=== PATIENT | male | born 1935 | race Caucasian/White ===

== ENCOUNTER 2017-02-11 14:26 | Inpatient (IN) | payer MEDICARE ==
--- NOTE | ~2017-02-11 | CT71 ---
[facility] A Service [facility] RADIOLOGY TEXT RESULTS PATIENT: LONA STOVALL LOCATION: [facility]10-24 : 36 UNIT #: [id number] AGE: [address]: Evelia Pena MD SEX: M ORDER DR: [id number] [facility] [address] [place], [place] [address] [id number] I MR#: [id number] Acc #: [id number] NAME: LONA STOVALL : 1935 SEX: M STUDY DATE/TIME: 02/11/2017 14:52 UNIT: [facility] ROOM: [facility] STUDY DESCRIPTION: CT Head Wo Contrast Attending Physician: Evelia Pena M.D. Ordering Physician: Avinash Whitehead M.D. MEDICAL IMAGING REPORT This report is preliminary unless electronic signature is present EXAM Head CT without contrast. HISTORY Patient fell yesterday morning. Head injury. TECHNIQUE Axial images were obtained without contrast. This CT exam was performed with one or more of the following radiation dose reduction techniques: automatic exposure control, adjustment of mA and/or kV according to patient size, and iterative reconstruction. FINDINGS Generalized atrophy is noted. Encephalomalacia is seen in the left temporal lobe and posterior parietal lobe from an old infarct. There is no evidence of mass lesion, hemorrhage, or edema. Extraaxial structures are unremarkable. IMPRESSION Atrophy. 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 No acute findings. Dictated by... Donny Sanchez M.D. THIS IS AN ELECTRONICALLY VERIFIED REPORT Donny Sanchez M.D. at 02/15/2017 7:14 AM EZEKIEL/domonique TD: 02/11/2017 16:33 JOB #: [id number] [facility] A Service [facility] RADIOLOGY TEXT RESULTS PATIENT: LONA STOVALL LOCATION: [facility]10-24 : 36 UNIT #: [id number] AGE: [address]: Evelia Pena MD SEX: M ORDER DR: MEDICAL IMAGING REPORT Page 1 of 1 COPY
--- NOTE | ~2017-02-11 | CO ---
Unit #: [id number] #: [id number] Patient: LONA STOVALL [id number] [address] [place], [place] [address] [id number] I MR#: [id number] NAME: LONA STOVALL ROOM: 471 Age: 81 Sex: M Admission Date: 02/11/2017 : 1935 Attending Physician: Evelia Pena M.D. Primary Care Physician: Primary Care Physician No CONSULTATION REPORT REASON FOR CONSULTATION Lung mass concerning for malignancy. HISTORY OF PRESENT ILLNESS Mr. Stovall is a very pleasant 81-year-old gentleman, who has been admitted to the hospital after suffering a fall. The patient also was found to be anemic. He is known to have chronic kidney disease. On the chest x-ray, there was a left upper lobe opacity, because of which, he underwent CT scan of the chest without contrast. CT scan shows a left upper lobe mass, which is 6 x 5 x 6.7 cm mass. There is a possibility of dense masslike infiltrate, but that is felt to be less likely. There is in addition 1 cm upper mediastinal lymph node as well. The patient was also found to have an aortic aneurysm for which he has previous history. The patient is also found to be anemic with evidence of chronic kidney disease. PAST MEDICAL HISTORY 1. History of myocardial infarction in 2002 and 2003, anterior wall NH. 2. Abdominal aortic aneurysm repair. 3. History of paroxysmal atrial fibrillation. 4. Renal failure. 5. Hypertension and hyperlipidemia. PAST SURGICAL HISTORY History of stent placement, cataract surgery, abdominal aortic aneurysm repair. HOME MEDICATIONS Lopressor, Amaryl, Plavix, Lipitor, Tylenol, Lasix, isosorbide, aspirin. ALLERGIES No known drug allergies. SOCIAL HISTORY The patient is . In fact, I spoke to his on the telephone. He is an ex-smoker. He used to smoke 2 packs per day. He has 60-pack year history. Currently does not smoke. Does not drink alcohol. FAMILY HISTORY Unremarkable. REVIEW OF SYSTEMS Overall, the patient seems to be doing okay. He does give a history of weakness and shortness of air, but at the moment, he is anxious to leave the hospital because he has some issues to take care of at home. Unit #: [id number] #: [id number] Patient: LONA STOVALL PHYSICAL EXAMINATION VITAL SIGNS: He is afebrile. Pulse 74, respiration 18, blood pressure 130/70, oxygen saturations 98%. GENERAL: Patient appears well developed, well nourished, and healthy. Personality: Pleasant and cooperative. Mental status: Alert and oriented. Stature: ECOG performance score 0. HEENT: Examination of head, eyes, ears, nose and throat is unremarkable. HEMATOLOGIC/LYMPHATIC: There is no palpable adenopathy in the inguinal, axillary or cervical areas. CARDIOVASCULAR: S1 and S2 regular. Normal rate without any murmurs or gallops. RESPIRATORY: Chest symmetrical, normal, breath sounds equal, bilaterally symmetrical. No rales or rhonchi, and no dullness to percussion. ABDOMEN/GASTROINTESTINAL: Abdomen is soft, nontender, and without palpable masses. No hepatosplenomegaly. EXTREMITIES: Peripheral pulses are normal. There is no edema, cyanosis, clubbing or significant varicosities. NEUROLOGICAL: Patient is alert and oriented x3. Cranial nerves II-XII are grossly intact. Motor strength is 5/5 and equal in all four extremities. Deep tendon reflexes are +2/4 and equal bilaterally. MUSCULOSKELETAL: No evidence of joint swelling, bone tenderness or muscle tenderness is appreciable. SKIN: No lesions or rashes. PSYCHIATRIC: No delusions or hallucinations, no loose associations, no flight of ideas, no tangentiality. Affect is appropriate. No psychomotor slowing or agitation. Eye contact is appropriate. DIAGNOSTIC STUDIES LABORATORY RESULTS: Hemoglobin 8.6, white count 12.8, platelet count 269. Creatinine 2.2, sodium 129, calcium 11.2, albumin 3.1. IMAGING STUDIES: CT scan of the chest shows a large left upper lobe mass and mediastinal lymph node concerning for malignancy. ASSESSMENT AND PLAN Mr. Stovall is a pleasant 81-year-old gentleman, who was now admitted after suffering a fall. He has multiple medical problems. On the chest x-ray followed by CT scan, he was found to have a left upper lobe mass, which is quite large. In addition, there is mediastinal lymphadenopathy. This is all concerning for primary lung cancer. I tried to explain this to the patient, but he is very anxious to leave the hospital. In fact, I called his , Sydney Stovall over the phone and explained to her what is going on. Already, CT-guided biopsy has been requested by Dr. Hill, which will provide us with tissue diagnosis. I will get a CEA as a tumor marker as well as CT scan of the abdomen and pelvis for completion of staging without intravenous contrast because of his underlying chronic kidney disease. This was all explained to the patient and his at length and his is going to come and try to explain to him, so that he can complete the workup as an inpatient. Dictated by... Noreen Aviles M.D., Ph.D. KIMBERLEE/larry TD: 02/14/2017 00:24 Unit #: [id number] #: [id number] Patient: LONA STOVALL JOB #: [id number] CONSULTATION REPORT Page 1 of 1 X X CONSULTATION REPORT
--- NOTE | ~2017-02-11 | CO ---
Unit #: [id number] #: [id number] Patient: LONA STOVALL [id number] [address] [place], [place] [address] [id number] I MR#: [id number] NAME: LONA STOVALL ROOM: 471 Age: 81 Sex: M Admission Date: 02/11/2017 : 1935 Attending Physician: Evelia Pena M.D. Consultation Date: 02/11/2017 CONSULTATION REPORT REASON FOR CONSULT Known chronic kidney disease. HISTORY OF PRESENT ILLNESS Mr. Stovall is an 81-year-old male, very poor historian, who was brought in after a fall from home and he is unclear about the details. He only says that he was walking up the steps at home and fell backwards and hit his back. He does not really recall any loss of consciousness, but is not clear exactly what precipitated the fall. He does mention that he has had some dizziness as of late. The patient tells me that he sees my partner, Dr. Gregg Riley in the office for chronic kidney disease, which he reports as being stable. Other than some recent dizziness, he has noticed a little bit of shortness of breath. He knows not to use any NSAIDs. He denies any urinary complaints. He had no recent gastrointestinal issues including no nausea, vomiting, or diarrhea. Noteworthy is the fact that they did find a lung mass on admission workup. PAST MEDICAL HISTORY Significant for CKD stage 4; coronary artery disease, status post stent placements; hypertension; diabetes; history of stroke; hyperlipidemia; cataracts; atrial fibrillation; congestive heart failure with an ejection fraction of 25%; abdominal aortic aneurysm. PAST SURGICAL HISTORY He has had an abdominal aortic aneurysm repair, coronary stent placement, cataract surgery. HOME MEDICATIONS According to the admission list are Lopressor, Amaryl, Plavix, Lipitor, hydralazine, acetaminophen, Lasix, isosorbide dinitrate, and aspirin. ALLERGIES He has no known drug allergies. FAMILY HISTORY Unremarkable for any kidney disease. SOCIAL HISTORY He is a former smoker. He says he quit about 20 years ago. No alcohol or drug abuse. is not present. REVIEW OF SYSTEMS A complete 12-point review of systems was attempted, but made very difficult due to the patient's poor historical status. Denies any Unit #: [id number] #: [id number] Patient: LONA STOVALL headaches, nosebleed, sore throat, or earache. No chest pain or palpitations. No cough or hemoptysis. No bright red blood per rectum or melena. No dysuria. No hematuria. No swelling. No rashes. No itching. No flank pain. No recent fevers or chills. He denies night sweats or hot flashes. Denies intolerance to heat or cold. No bleeding issues. He does not think he has lost any weight as of late. Unless otherwise indicated, the review of systems was negative. PHYSICAL EXAMINATION VITAL SIGNS: The patient is afebrile. Pulse 76, respiratory rate 27, blood pressure 133/82. GENERAL: This is an 81-year-old male, very poor historian, resting in bed, in no acute distress. HEENT: Head is normocephalic. Eyes show pale conjunctivae with no scleral icterus. Nose shows no nasal drainage or nosebleed. Oropharynx is slightly dry. NECK: Shows no rigidity. HEART: Irregularly irregular with no gallop or rub appreciated. LUNGS: Show diminished breath sounds bilaterally with no wheezing or rhonchi. Breathing is nonlabored. ABDOMEN: Soft and nontender. Bowel sounds are present. EXTREMITIES: No lower extremity cyanosis or pitting edema. SKIN: Dry with no rashes. MUSCULOSKELETAL: I was not able to examine his back. I do not see any joint effusions. NEUROLOGIC: The patient does appear to be able to move all 4 extremities without difficulty. PSYCHIATRIC: Mood and affect appear normal. DIAGNOSTIC STUDIES IMAGING STUDIES: CT scan of the chest done without contrast did show a left upper lobe mass concerning for malignancy and possible pneumonia, also that showed a compression fracture of L1 and some emphysema. LABORATORY RESULTS: Urinalysis done in the ER was bland with no blood or protein. Chemistry on admission showed a sodium of 129, potassium 4.7, chloride 96, bicarb 21, glucose 105, BUN 38, creatinine 2.2, calcium was high at 11.2, albumin 3.1. INR was 2.7. CBC showed a white count of 12.8, hemoglobin 8.6, and platelet count 269. Prior creatinine was 2.5 in 2013 and 1.6 to 2.6 prior to that. ASSESSMENT AND PLAN 1. Chronic kidney disease, likely stage 4. The patient likely has underlying nephrosclerosis from hypertension and atherosclerotic disease. Overall, his kidney function does look stable. We should avoid NSAIDs and any IV contrasted studies if possible. 2. Hyponatremia. I certainly wonder if this is not due to syndrome of inappropriate antidiuretic hormone with his lung cancer. I will check a workup. 3. Hypercalcemia. Certainly, I am concerned about bone metastasis with his lung lesion. We will continue hydration with normal saline tonight and I will give a single dose of IV Lasix as well to assist with calcium removal through the urine. 4. Lung mass, which is likely cancer. 5. Atrial fibrillation. 6. History of coronary artery disease with congestive heart failure and reported ejection fraction of 20% on a prior discharge. 7. History of stroke. Unit #: [id number] #: [id number] Patient: LONA STOVALL 8. Bedbug isolation is noted. 9. History of abdominal aortic aneurysm repair. 10. History of diabetes. I would like to thank Dr. Maynard for this consult and the opportunity to participate in the evaluation and care of Mr. Diaz. Dictated by... Eran Farr Jr., M.D. VERONICA/larry TD: 02/12/2017 03:03 JOB #: [id number] CONSULTATION REPORT Page 1 of 1 X Eran Farr MD X CONSULTATION REPORT
--- NOTE | ~2017-02-11 | DS ---
Unit #: [id number] #: [id number] Patient: LONA STOVALL [id number] [address] [address] [id number] I MR#: [id number] NAME: LONA STOVALL ROOM: 47 Age: 81 Sex: M Admission Date: 02/11/2017 : 1935 Discharge Date: 02/18/2017 Attending Physician: Evelia Pena M.D. Primary Care Physician: No Primary Care Physician DISCHARGE SUMMARY DISCHARGE DIAGNOSES 1. Hhl-sixna-htpy lung cancer. 2. Sinus pauses. 3. Severe bradycardia secondary to beta lexi. 4. Status post fall. 5. Compression fracture L2 area. 6. Paroxysmal atrial fibrillation. 7. Chronic kidney disease stage 3-4. 8. Hypercalcemia secondary to lung mass. 9. Hypertension. 10. Hyperlipidemia. 11. History of diabetes mellitus type 2. 12. History of coronary artery disease, status post stents placed. 13. Abdominal aortic aneurysm, status post repair. 14. History of myocardial infarction. 15. Pneumonia, completed antibiotic course. 16. Anemia. No active bleeding. Iron deficiency. 17. Moderate protein malnutrition. 18. Mild hyponatremia. 19. Hyperuricemia. 20. Elevated CEA at 3.6. CONSULTANTS Dr. Riley. Dr. Kennedy. Dr. Hill. PROCEDURES The patient had lung biopsy. Results show xlk-cnljt-ehij lung cancer. DIAGNOSTIC DATA LABORATORY: Sodium 134, potassium 4.3, creatinine 1.9, carbon dioxide 23, calcium 10.3, INR 3.4, white blood cell count 12.2, hemoglobin 8.5, platelets 262. Blood cultures negative. PTH 7, calcium 10.6. IMAGING: CT of the abdomen and pelvis shows no definite metastatic disease. Superior endplate compression fracture L2 present, approximately 20% loss, 4.6 cm suprarenal abdominal aortic aneurysm present. CAT scan of the chest shows left upper lobe mass, 6 x 5 x 6[address] of the cervical spine shows multilevel cervical degeneration. No acute fracture. Unit #: [id number] #: [id number] Patient: LONA STOVALL CT of the head shows atrophy, chronic changes. No acute changes. ALLERGIES No known drug allergies. DISCHARGE MEDICATIONS 1. Tylenol 650 mg p.o. q.6 h. p.r.n. pain and headache. 2. Coumadin 3 mg p.o. daily. 3. Lasix 20 daily. 4. Zocor 40 mg daily. 5. Hydralazine 50 p.o. b.i.d. 6. Ferrous sulfate 325 mg p.o. daily. 7. Lortab 5 mg p.o. b.i.d. p.r.n. pain. 8. Coreg 6.25 mg p.o. b.i.d. if okay with cardiology. HOSPITAL COURSE The patient is an 81-year-old admitted on 02/11/2017 for fall. Nlz-utsvd-hhws lung cancer: The patient had a lung biopsy which shows oyu-hwyqd-syft lung cancer. The patient was seen by Dr. Kennedy. He needs outpatient PET scan. The patient will follow with Dr. Kennedy as an outpatient. Bradycardia with sinus pauses: Most likely secondary to beta lexi. Medication has been decreased from 12.[address] Stanley is closely following. I am going to discharge the patient after being seen by cardiology. Dose adjustments of Coreg as per cardiology. Hypercalcemia: The patient was seen by Dr. Riley. The patient received IV fluids and Zometa. The patient will follow with Dr. Kennedy as an outpatient. Chronic kidney disease stage 4: Stable. Atrial fibrillation: Paroxysmal. On Coumadin. INR currently 3.4. Continue with Coumadin 3 mg and follow with PT/INR. I am going to arrange home health. Follow with primary care physician for results. Moderate protein malnutrition: The patient needs high protein diet and encouragement at home. Pneumonia: Community acquired. The patient received Rocephin. The patient completed his course. L2 compression fracture status post fall: Only 20%. Continue with Lortab for p.r.n. pain. Chronic systolic heart failure: Stable. Echocardiogram shows ejection fraction 55%. The patient has moderate to severe aortic regurgitation. Moderate mitral regurgitation and mild to moderate tricuspid regurgitation. The patient will follow with cardiology as an outpatient. Right ventricular systolic pressure is 50 mmHg. Anemia: Likely secondary to chronic kidney disease. No active bleeding. Iron deficiency. Unit #: [id number] #: [id number] Patient: LONA STOVALL DISPOSITION The patient will be discharged home with home health. FOLLOWUP 1. Follow up with family physician in one week time. 2. Follow up with Dr. Kennedy within a week for hypercalcemia. 3. Follow with Dr. Stanley as advised. 4. The patient needs PT/INR check on 02/21/2017. Follow up with primary care physician for results. associate financial planner to talk with family before discharge. Discharge time taken was 40 minutes. Dictated by... Mellisa Higgins TD: 02/18/2017 10:52 JOB #: [id number] DISCHARGE SUMMARY Page 1 of 1 X Evelia Pena MD X DISCHARGE SUMMARY
--- NOTE | ~2017-02-11 | CO ---
Unit #: [id number] #: [id number] Patient: LONA STOVALL [id number] [address] [place], [place] [address] [id number] I MR#: [id number] NAME: LONA STOVALL ROOM: 471 Age: 81 Sex: M Admission Date: 02/11/2017 : 1935 Attending Physician: Evelia Pena M.D. Primary Care Physician: No Primary Care Physician CONSULTATION REPORT REASON FOR CONSULTATION Cardiac pauses. HISTORY OF PRESENT ILLNESS This is an 81-year-old white male known to Dr. Hilliard. He has a prior cardiac history of an extensive anterior wall myocardial infarction in 2003 in which he received a stent to his proximal LAD. Cardiac cath done in February 2007 showed a normal left main, proximal LAD patent, mid LAD 90% stenosis, distal LAD normal, left circumflex with mild disease, RCA dominant with 20% stenosis. The left ventricular ejection fraction at that time was 20%. He also has a history of permanent afib and he is on chronic anticoagulation with Coumadin, he also has a history of systolic congestive heart failure, hypertension, hyperlipidemia, aortic aneurysm repair in 2005, and former smoker. In addition he has a history of COPD and diabetes and prior ETOH abuse. He presented to the ER with complaints of back and neck pain on 02/11/2017 after falling at home. He states he was walking down the stairs and he tripped over his feet and fell backward. An x-ray showed a left upper lobe lung mass. On 02/[address]-guided lung biopsy. Biopsy is pending at this time. He was also hypercalcemic with a calcium of 11.2. Renal is following. We were asked to see him to evaluate him for cardiac pauses. He is currently in atrial fibrillation with controlled ventricular rate. PAST MEDICAL HISTORY 1. Extensive anterior wall myocardial infarction. 2. Coronary artery disease, status post stent to proximal LAD. 3. Cardiac cath 02/2007 showed a normal left main, mid LAD 90% stenosis, left circumflex mild disease, RCA 20% and LVEF 20%. 4. Permanent afib, on chronic Coumadin. 5. Diabetes mellitus. 6. Chronic kidney disease. 7. Hypertension. 8. Hyperlipidemia. 9. Abdominal aortic aneurysm repair in 2005. 10. History of systolic congestive heart failure. 11. Former tobacco abuse. 12. History of ETOH abuse. 13. COPD. 14. Echocardiogram 08/21/2009 left ventricular ejection fraction 35% to 45%, moderate to severe global hypokinesis in the LV, mild left ventricular hypertrophy, moderate mitral regurgitation and tricuspid regurgitation, RVSP 40 to 50 and mild to moderate aortic Unit #: [id number] #: [id number] Patient: LONA STOVALL. PAST SURGICAL HISTORY AAA repair 2005. SOCIAL HISTORY Lives with his . Former smoker, quit 15 to 20 years ago. History of ETOH abuse. FAMILY HISTORY Positive for coronary artery disease per records. Patient is unable to tell me at this time. ALLERGIES No known drug allergies. MEDICATIONS 1. Lasix 20 mg p.o. daily. 2. Coumadin 5 mg p.o. daily. 3. Lipitor 20 mg q.h.s. 4. Coreg 12.5 mg daily. 5. Hydralazine 50 mg daily. 6. Rocephin. 7. Zithromax. REVIEW OF SYSTEMS Denies chest pain, palpitation. Positive for weakness and dyspnea on exertion. Otherwise negative except for what was stated in the HPI. PHYSICAL EXAMINATION GENERAL: This is a pleasant 81-year-old male in no acute distress, resting in bed. VITAL SIGNS: Temperature 98.4, heart rate 74, respirations 19, blood pressure 140/83, height 69 inches, weight 74.8 kg. HEENT: Head is normocephalic and atraumatic. Pupils are equal and round. Mucous membranes are moist. NECK: Supple. Trachea is midline. Negative for JVD. LUNGS: Clear to auscultation, diminished on the right. Regular nonlabored respirations. CARDIOVASCULAR: S1, S2. No murmur or gallop. ABDOMEN: Soft, nontender and nondistended. EXTREMITIES: Pulses are palpable. No pedal edema. No cyanosis. NEUROLOGIC: Alert and oriented. Able to answer questions appropriately. Moves all extremities equally and follows commands without difficulty. DIAGNOSTIC STUDIES LABORATORY: Glucose 122, BUN 32, creatinine 2, sodium 134, potassium 4, calcium 10.9, magnesium 2.1, PT 21.5, INR 2, hemoglobin 7.5, hematocrit 23.4, white blood cell count 11.5, platelets 243. IMAGING: Chest x-ray showed left upper lobe mass. CT chest showed left upper lobe mass with enlarged mediastinal lymph nodes, bilateral emphysema and recent-appearing compression fracture, and aneurysmal dilatation of mid aortic arch. CT of the head showed atrophy with no acute findings. Unit #: [id number] #: [id number] Patient: LONA STOVALL Cervical CT showed degenerative disc and facet disease. CARDIOVASCULAR: EKG on 02/12/17 showed afib with controlled ventricular rate and old anterior wall infarction. Echocardiogram done 08/21/2009 showed left ventricular ejection fraction 35% to 45%, moderate to severe global hypokinesis of the LV, mild to moderate TR, moderate MR and AR. ASSESSMENT 1. Atrial fibrillation with controlled ventricular rate, on anticoagulation with Coumadin. 2. Probable lung cancer. 3. Old anterior myocardial infarction. 4. Coronary artery disease, status post percutaneous coronary intervention/stent left anterior descending 02/2007. 5. History of acute systolic congestive heart failure with ejection fraction of 40% per 2008 echocardiogram. 6. Chronic kidney disease. 7. Hypercalcemia. 8. Anemia. 9. Chronic obstructive pulmonary disease. PLAN In light of pauses will decrease Coreg dose to 6.25 mg p.o. b.i.d. If he needs surgery will evaluate for progression of new disease with a Lexiscan stress test and evaluate left ventricular ejection fraction with an updated echocardiogram. Thank you for asking us to see this patient. We appreciate the consult. Dictated by... Majo Sigala APRN for Mellisa Mercer/mal TD: 02/16/2017 16:15 JOB #: [id number] CONSULTATION REPORT Page 1 of 1 X X CONSULTATION REPORT
--- NOTE | ~2017-02-11 | CT4 ---
[facility] A Service of [facility] & [facility] RADIOLOGY TEXT RESULTS PATIENT: LONA STOVALL LOCATION: [place] [address]- : 36 UNIT #: [id number] AGE: [address]: Evelia Pena MD SEX: M ORDER DR: [id number] [facility] [address] [place], [place] [address] [id number] I MR#: [id number] Acc #: [id number] NAME: LONA STOVALL : 1935 SEX: M STUDY DATE/TIME: 02/13/2017 12:33 UNIT: [facility] ROOM: [facility] STUDY DESCRIPTION: CT Abd and Pelv Wo Cont Attending Physician: Evelia Pena M.D. Ordering Physician: Noreen Aviles M.D., Ph.D. Primary Care Physician: Primary Care Physician No MEDICAL IMAGING REPORT This report is preliminary unless electronic signature is present EXAM CT abdomen and pelvis without contrast HISTORY 81-year-old male with left upper lobe mass, evaluate for metastatic disease to the abdomen and pelvis for cancer staging. FINDINGS Axial images performed through the abdomen and pelvis without contrast. IV contrast withheld due to renal insufficiency. Multiplanar reconstructed images reviewed at a workstation. This CT exam was performed with one or more of the following radiation dose reduction techniques: Automatic exposure control, adjustment of mA and/or kV according to patient size, and iterative reconstruction. Lung bases demonstrates a small amount of left pleural fluid as well as bibasilar pleural calcifications. There is aneurysmal dilatation of the abdominal aorta above the level of the renal arteries measuring about 4.6 cm. Postsurgical changes seen in the distal aorta from apparent endoluminal grafting. Liver demonstrates coarse calcifications inferior aspect of the right lobe of the liver probably related to granulomatous disease. The gallbladder unremarkable. The spleen demonstrates multiple calcifications compatible with granulomatous disease. Pancreatic calcifications are demonstrated which may be vascular. Mild renal cortical atrophy and nonspecific perinephric edema. Probable right renal cortical cysts. No hydronephrosis. No adrenal mass lesions seen. Stomach, small bowel unremarkable. Colonic diverticulosis without diverticulitis. PELVIS: Bladder is distended with possible small diverticulum right anterolateral bladder. Prostate unremarkable. There is superior endplate compression fracture of L2, less than 20% loss of the vertebral body height. Imaging features suggest that this may be acute, correlate with STS. [facility] A Service of [facility] RADIOLOGY TEXT RESULTS PATIENT: LONA STOVALL LOCATION: [place] [address] : 36 UNIT #: [id number] AGE: [address]: Evelia Pena MD SEX: M ORDER DR: clinical symptoms. There is a ventral hernia measuring just over 5 cm in greatest transverse dimensions containing omental fat only. There is also a small fat-containing umbilical hernia. IMPRESSION 1. No definitive metastatic disease to the abdomen and pelvis on this unenhanced study. 2. Superior endplate compression fracture of L2 with approximately 20% loss of the anterior vertebral body height. Imaging features suggest this may represent an acute or subacute fracture, correlate with clinical symptoms. 3. 4.6 cm suprarenal abdominal aortic aneurysm with postsurgical changes noted within the infrarenal aorta, suggesting endovascular stent grafting. 4. Mild renal cortical atrophy. 5. Colonic diverticulosis. 6. Small left pleural effusion and bibasilar pleural calcification. Dictated by... Khushi Miguel M.D. THIS IS AN ELECTRONICALLY VERIFIED REPORT Khushi Miguel M.D. at 02/14/2017 1:05 PM IFEOMA/ricardo TD: 02/13/2017 16:14 JOB #: [id number] MEDICAL IMAGING REPORT Page 1 of 1 COPY
--- NOTE | ~2017-02-11 | CT57 ---
[facility] A Service of [facility] & [facility] RADIOLOGY TEXT RESULTS PATIENT: LONA STOVALL LOCATION: [place] [address] : 36 UNIT #: [id number] AGE: [address]: SUSAN LIMA MD SEX: M ORDER DR: [id number] [facility] [address]. [place], [place] [address] [id number] E MR#: [id number] Acc #: [id number] NAME: LONA STOVALL : 1935 SEX: M STUDY DATE/TIME: 02/11/2017 16:01 UNIT: [facility] ROOM: STUDY DESCRIPTION: CT Chest Wo Cont Attending Physician: Avinash Whitehead M.D. Ordering Physician: Avinash Whitehead M.D. Primary Care Physician: No Primary Care Physician MEDICAL IMAGING REPORT This report is preliminary unless electronic signature is present EXAM CT chest without contrast. HISTORY Shortness of air and chest pain after a fall yesterday. Left upper lobe abnormality on chest x-ray today. TECHNIQUE NOTE: This CT exam was performed with one or more of the following radiation dose reduction techniques: automatic exposure control, adjustment of mA and/or kV according to patient size, and iterative reconstruction. FINDINGS CT chest without contrast demonstrates a rounded mass in the anteromedial left upper lobe extending nearly to the left apex, measuring 6.0 cm x 5.0 cm x 6.7 cm in AP, transverse and craniocaudal dimensions, corresponding to the abnormality on chest x-ray earlier today. This is concerning for lung carcinoma. Dense mass-like infiltrate is also a consideration, but felt be less likely. Suggest bronchoscopic evaluation. Mildly enlarged. The left anterior upper mediastinal node measuring 1.0 cm, could be reactive or inflammatory, versus metastatic adenopathy. Mild interstitial infiltrate in the anterior and superior left upper lobe, peripheral to the rounded mass could be secondary to postobstructive pneumonia or atelectasis. Moderate emphysema primarily in the upper lobes. No additional pulmonary nodule, mass or infiltrate. Dilatation of the mid aortic arch measuring 3.6 cm in diameter. There is also dilatation of the distal descending thoracic aorta measuring 3.7 cm. Aneurysmal dilatation of the aorta at the thoracoabdominal junction measures 4.2 cm in diameter. Atrophy of the partly visualized kidneys bilaterally. Small calcified pleural plaques along the posterior margins of the lower lobes bilaterally. Mild acute compression fracture of the superior endplate of L1, with close to 20% loss of the L1 vertebral body height. STS. [facility] A Service of [facility] RADIOLOGY TEXT RESULTS PATIENT: LONA STOVALL LOCATION: [place] [address] : 36 UNIT #: [id number] AGE: [address]: SUSAN LIMA MD SEX: M ORDER DR: IMPRESSION 1. Left upper lobe mass measures 6 cm x 5 cm x 6.7 cm and abuts the left upper mediastinal pleura and extends nearly to the left apex and corresponds to the abnormality on chest x-ray earlier today. This is concerning for malignancy including lung carcinoma. Consider bronchoscopy and biopsy. Mild infiltrate in the superior left upper lobe peripheral to the mass could be secondary postobstructive pneumonia or atelectasis. 2. Borderline to mildly enlarged left anterior upper mediastinal node measures 1 cm and could be reactive or inflammatory versus bethel metastasis. 3. Aneurysmal dilatation of the mid aortic arch, distal descending thoracic aorta and aorta at the thoracoabdominal junction extending into the upper abdomen as detailed above. 4. Recent appearing compression fracture of the superior endplate of L1 with close to 20% loss of the L1 vertebral body height. 5. Bilateral emphysema primarily in the upper lobes. Dictated by... Syd Wade M.D. THIS IS AN ELECTRONICALLY VERIFIED REPORT Syd Wade M.D. at 02/11/2017 10:30 PM TOAN/baljit TD: 02/11/2017 18:37 JOB #: [id number] MEDICAL IMAGING REPORT Page 1 of 1 COPY
--- NOTE | ~2017-02-11 | EKG ---
PATIENT: LONA STOVALL UNIT #: [id number] Ventricular Rate: 79 BPM Atrial Rate: 76 BPM QRS Duration: 104 ms Q-T Interval: 388 ms QTC Calculation(Bezet): 444 ms Calculated R [place]: -27 degrees Calculated T [place]: 96 degrees Diagnosis Line: Atrial fibrillation Diagnosis Line: Nonspecific ST and T wave abnormality Diagnosis Line: Abnormal ECG Diagnosis Line: When compared with ECG of 11-FEB-2017 14:09, Diagnosis Line: No significant change was found Diagnosis Line: Confirmed by DONOVAN ISLAS MD ([id number]) on 02/16/2017 Diagnosis Line: 10:45:47 PM INTERPRETING MD: JANEL FAIR
--- NOTE | ~2017-02-11 | CR71 ---
[facility] A Service of [facility] & [facility] RADIOLOGY TEXT RESULTS PATIENT: LONA STOVALL LOCATION: [place] [address] : 36 UNIT #: [id number] AGE: [address]: Evelia Pena MD SEX: M ORDER DR: [id number] [facility] [address] [place] [address] [facility]. [place], [place] [address] [id number] I MR#: [id number] Acc #: [id number] NAME: LONA STOVALL : 1935 SEX: M STUDY DATE/TIME: 02/15/2017 12:51 UNIT: [facility] ROOM: [facility] STUDY DESCRIPTION: CR Chest Single View Attending Physician: Evelia Pena M.D. Ordering Physician: Donny Sanchez M.D. Primary Care Physician: No Primary Care Physician MEDICAL IMAGING REPORT This report is preliminary unless electronic signature is present EXAM AP chest HISTORY Lung mass post biopsy. TECHNIQUE Single AP view chest was obtained. FINDINGS A single view of the chest shows no evidence of pneumothorax following core biopsy. No new infiltrates are seen. A left upper lung field mass is again noted. Dictated by... Donny Sanchez M.D. THIS IS AN ELECTRONICALLY VERIFIED REPORT Donny Sanchez M.D. at 02/15/2017 5:02 PM EZEKIEL/cristóbal TD: 02/15/2017 14:34 JOB #: [id number] MEDICAL IMAGING REPORT Page 1 of 1 COPY
--- NOTE | ~2017-02-11 | HP ---
Unit #: [id number] #: [id number] Patient: LONA STOVALL [id number] [address] [place], [place] [address] [id number] E MR#: [id number] NAME: LONA STOVALL ROOM: Age: 81 Sex: M Admission Date: 02/11/2017 : 1935 Attending Physician: Avinash Whitehead M.D. Primary Care Physician: Primary Care Physician No HISTORY AND PHYSICAL CHIEF COMPLAINT Status post fall. HISTORY OF PRESENT ILLNESS The patient is an 81-year-old male who is a poor historian, brought to the emergency room status post fall yesterday morning. The patient is accompanied by his and history is obtained by speaking to the ER physician and the family at the bedside. The patient was trying to get the rosary yesterday morning and he fell down. The patient was unable to get up and was helped by his . The patient stated the patient was brought in today because of the worsening pain. The patient had a workup in the emergency room with a chest x-ray that shows that patient has a mass and concerning for pneumonia. X-ray of the spine was concerning for a compression fracture. The patient is being admitted for the above reasons. PAST MEDICAL HISTORY 1. History of extensive anterior wall myocardial infarction back in 2002 and 2003. 2. Abdominal aortic aneurysm repair. 3. History of paroxysmal atrial fibrillation. 4. Mild renal insufficiency. 5. No history of diabetes mellitus. 6. History of hypertension. 7. Hyperlipidemia. PAST SURGICAL HISTORY 1. History of stent placement. 2. Cataracts both eyes. 3. Abdominal aortic aneurysm repair. HOME MEDICATIONS 1. Lopressor. 2. Amaryl. 3. Plavix. 4. Lipitor. 5. Acetaminophen. 6. Lasix. 7. Isosorbide. 8. Aspirin. ALLERGIES No known drug allergies. Unit #: [id number] #: [id number] Patient: LONA STOVALL SOCIAL HISTORY Remote smoking, 2 packs of cigarettes per day. Total smoking history is greater than 60 packs per year. Denies any alcohol or any illicit drug abuse. FAMILY HISTORY Reviewed and none. REVIEW OF SYSTEMS A 14-point review of systems performed and only pertinent positive findings as described above. PHYSICAL EXAMINATION VITAL SIGNS: Temperature 97.9, pulse 74, respiratory rate 20, blood pressure 131/71, saturating 98% at room air. GENERAL: Patient is lying on the bed not in acute distress. HEENT: Atraumatic, normocephalic. Pupils equal, round, and reactive to light and accommodation. Extraocular movements are intact. Dry mucous membrane. NECK: Supple. LUNGS: Decreased air entry at the bases, positive for rhonchi. HEART: Irregular rate and rhythm. ABDOMEN: Soft, positive bowel sounds. BACK: Lower lumbar area pain. NEUROLOGIC: Alert, awake, oriented. No gross focal motor deficit. DIAGNOSTIC STUDIES LABORATORY: Glucose 105, BUN 38, creatinine 2.2, sodium 129, potassium 4.7, chloride 96, bicarb 21, calcium 11.2, total protein 7.4, albumin 3.1, AST 19, ALT 13, alkaline phosphatase 52. INR 2.7. WBC 12.8, hemoglobin 8.6, hematocrit 26.7, platelets 269, neutrophils 85.5. UA is negative. IMAGING: Chest x-ray shows 3.4 cm round mass-like density in the region of the left upper lobe, this is concerning for possible mass although it may represent a rounded area of pneumonia. X-ray of the spine mild upper endplate deformity of L2, the exact chronicity is uncertain. The patient is experiencing back pain in the region of L2, then this may represents an acute compression fracture. CARDIOVASCULAR: EKG shows atrial fibrillation at a rate of 77 beats per minute. ASSESSMENT AND PLAN 1. Status post fall. 2. Left upper lobe lung mass concerning for malignancy. 3. Pneumonia, likely postobstructive. 4. Compression fracture at L2. 5. Sepsis. 6. Qlemn-fy-esjiulg kidney disease. PLAN 1. Admit patient to inpatient on telemetry. 2. Continue with IV gentle fluid with normal saline at 50 mL per hour for 10 hours with history of ischemic cardiomyopathy. 3. Continue with IV antibiotics with Rocephin and Zithromax. 4. Continue with the sepsis protocol and morphine for the pain. 5. Repeat CBC and BMP and INR in the morning. Unit #: [id number] #: [id number] Patient: LONA STOVALL 6. Will have a pulmonary consult with Dr. Hill for the left upper lobe mass, for bronchoscopy and biopsy. 7. Renal consult for the acute kidney injury and chronic kidney disease. 8. Pain management consult for compression fracture. 9. Further recommendations will follow as more lab results become available. Dictated by Mellisa Menezes TD: 02/11/2017 18:15 JOB #: [id number] HISTORY AND PHYSICAL Page 1 of 1 X X HISTORY AND PHYSICAL
--- NOTE | ~2017-02-11 | CR181 ---
[facility] A Service of [facility] RADIOLOGY TEXT RESULTS PATIENT: LONA STOVALL LOCATION: [facility] : 36 UNIT #: [id number] AGE: [address]: Avinash Whitehead MD SEX: M ORDER DR: [id number] [facility] [address] [place], [place] [address] [id number] E MR#: [id number] Acc #: [id number] NAME: LONA STOVALL : 1935 SEX: M STUDY DATE/TIME: 02/11/2017 14:03 UNIT: [facility] ROOM: STUDY DESCRIPTION: CR Lumbar Spine 2 or 3 Views Attending Physician: Avinash Whitehead M.D. Ordering Physician: Avinash Whitehead M.D. Primary Care Physician: No Primary Care Physician MEDICAL IMAGING REPORT This report is preliminary unless electronic signature is present EXAM Lumbar spine, 3 views. INDICATIONS Back pain today after falling. COMPARISON No comparisons. FINDINGS There is a mild upper endplate deformity of L2. The exact age is indeterminate. Remaining vertebral body heights are maintained. Minimal disc space narrowing in the lower lumbar spine. Lower lumbar spine facet arthropathy. IMPRESSION Mild upper endplate deformity of L2. The exact chronicity is uncertain. If the patient is experiencing acute back pain in the region of L2, this may represent an acute compression fracture. If that is the case, then further evaluation with MRI would be helpful to determine if this is an acute or chronic compression deformity. Dictated by... Reginald Miguel M.D. THIS IS AN ELECTRONICALLY VERIFIED REPORT Reginald Miguel M.D. at 02/11/2017 4:47 PM RACQUEL/baljit TD: 02/11/2017 16:12 JOB #: [id number] [facility] A Service of [facility] RADIOLOGY TEXT RESULTS PATIENT: LONA STOVALL LOCATION: [facility] : 36 UNIT #: [id number] AGE: [address]: Avinash Whitehead MD SEX: M ORDER DR: MEDICAL IMAGING REPORT Page 1 of 1 COPY
--- NOTE | ~2017-02-11 | CT134 ---
[facility] A Service of [facility] & [facility] RADIOLOGY TEXT RESULTS PATIENT: LONA STOVALL LOCATION: [place] [address]- : 36 UNIT #: [id number] AGE: [address]: Evelia Pena MD SEX: M ORDER DR: [id number] [place] [id number] [facility]. [place], [place] [address] [id number] I MR#: [id number] Acc #: [id number] NAME: LONA STOVALL : 1935 SEX: M STUDY DATE/TIME: 02/15/2017 9:48 UNIT: [facility] ROOM: [facility] STUDY DESCRIPTION: CT Guide Attending Physician: Evelia Pena M.D. Ordering Physician: Carmelo Hill M.D. Primary Care Physician: Primary Care Physician No MEDICAL IMAGING REPORT This report is preliminary unless electronic signature is present EXAM CT-guided lung biopsy HISTORY Left upper lung field mass. TECHNIQUE This CT exam was performed with one or more of the following radiation dose reduction techniques: automatic exposure control, adjustment of mA and/or kV according to patient size, and iterative reconstruction. PROCEDURE The procedure was explained to the patient including risks, benefits and complications. Informed consent was obtained and a formal time-out procedure was utilized. Conscious sedation was employed with intravenous Versed and Fentanyl that was administered by nursing who was present and monitoring the patient during the examination. With the patient lying supine, scans were obtained over the upper chest and an appropriate site for biopsy was chosen. Using sterile technique and following local anesthesia with 1% Xylocaine a 17-gauge guiding needle was placed into the mass with CT guidance. Through this an 18-gauge biopsy gun was used to obtain 2 cores of tissue. Tissue was placed in formalin and sent for appropriate stains and analysis. The patient tolerated the procedure well. He will be kept on bedrest for 2 hours following the biopsy with close monitoring of vital signs and a chest x-ray will be obtained after 2 hours to check for pneumothorax. Immediate post-biopsy scanning shows no pneumothorax. IMPRESSION Technically successful core biopsy of the left upper lung field mass with conscious sedation using CT guidance. Dictated by... STS. [facility] A Service of [facility] & [facility] RADIOLOGY TEXT RESULTS PATIENT: LONA STOVALL LOCATION: [place] [address] : 36 UNIT #: [id number] AGE: [address]: Evelia Pena MD SEX: M ORDER DR: Donny Sanchez M.D. THIS IS AN ELECTRONICALLY VERIFIED REPORT Donny Sanchez M.D. at 02/15/2017 5:02 PM Gunner TD: 02/15/2017 14:12 JOB #: [id number] MEDICAL IMAGING REPORT Page 1 of 1 COPY
--- NOTE | ~2017-02-11 | CO ---
Unit #: [id number] #: [id number] Patient: LONA STOVALL [id number] [address] [address] [id number] I MR#: [id number] NAME: LONA STOVALL ROOM: 471 Age: 81 Sex: M Admission Date: 02/11/2017 : 1935 Attending Physician: Evelia Pena M.D. Primary Care Physician: Sheila Primary Care Physician Consultation Date: 02/12/2017 CONSULTATION REPORT REASON FOR CONSULTATION Lung mass. CHIEF COMPLAINT Fall. HISTORY OF PRESENT ILLNESS This patient was admitted with a complaint of frequent fall and chest x-ray showed a lung mass. I am seeing the patient at bedside, currently complaining of mild shortness of breath. The patient denies any nausea, vomiting, diarrhea. No hemoptysis. The patient does complain of weight loss. PAST MEDICAL HISTORY Myocardial infarction, abdominal aortic aneurysm, atrial fibrillation, mild renal insufficiency, diabetes mellitus, history of hypertension. PAST SURGICAL HISTORY Stent placement, cataract surgery. SOCIAL HISTORY Two pack smoker per day. The patient denies alcohol or drug abuse. FAMILY HISTORY None. ALLERGIES No known drug allergies. MEDICATION 1. Lopressor. 2. Amaryl. 3. Plavix. 4. Lipitor. 5. Lasix. 6. Isosorbide. 7. Aspirin. Medication as per [facility] has been reviewed. PHYSICAL EXAMINATION VITAL SIGNS: Temperature 98. Pulse 87. Respiration 12. Blood pressure 130/70. NEUROLOGIC: Awake, alert, oriented. No neuro deficit. Unit #: [id number] #: [id number] Patient: LONA STOVALL HEENT: PERRLA. NECK: Supple. CHEST: Bilateral air entry. Bilateral mild rhonchi. GASTROINTESTINAL: Nontender. Soft. Bowel sounds positive. EXTREMITIES: No edema. SKIN: No rash. LYMPHATIC: No lymphadenopathy. ASSESSMENT AND PLAN Status post fall, left upper lobe mass concerning for malignancy or postobstructive pneumonia. The plan is to continue oxygen, bronchodilator and order a CT-guided biopsy. Please see orders for detailed plan. Thank you very much for this consultation. We will continue to monitor the patient. Continue him on antibiotics. Dictated by... Carmelo Hill M.D. JG/aurora TEAGUE: 02/12/2017 13:54 TD: 02/12/2017 15:23 JOB #: [id number] CONSULTATION REPORT Page 1 of 1 X Carmelo Hill MD CONSULTATION REPORT
--- NOTE | ~2017-02-11 | CR72 ---
[facility] A Service of [facility] RADIOLOGY TEXT RESULTS PATIENT: LONA STOVALL LOCATION: [facility] : 36 UNIT #: [id number] AGE: [address]: Avinash Whitehead MD SEX: M ORDER DR: [id number] [place] [id number] [facility]. [place], [place] [address] [id number] E MR#: [id number] Acc #: [id number] NAME: LONA STOVALL : 1935 SEX: M STUDY DATE/TIME: 02/11/2017 13:59 UNIT: [facility] ROOM: STUDY DESCRIPTION: CR Chest Single View Portable Attending Physician: Avinash Whitehead M.D. Ordering Physician: Avinash Whitehead M.D. MEDICAL IMAGING REPORT This report is preliminary unless electronic signature is present EXAM Portable chest INDICATIONS Minus shortness of breath and pain after falling today. COMPARISON STUDIES 04/24/2009. FINDINGS There is a new rounded mass-like density projecting over the left upper lobe measuring about 3.4 cm. This is concerning for possible mass, although it may represent a rounded area of pneumonia. Correlate clinically. Further evaluation with CT is recommended if the patient is not exhibiting signs and symptoms of pneumonia and in particular, if the patient has a smoker. If the patient does have signs and symptoms of pneumonia, this could be followed up in 2-4 weeks with a repeat chest x-ray to document clearing. Heart size normal. Atherosclerotic calcification of the aorta. IMPRESSION 3.4 cm rounded mass-like density in the region of the left upper lobe. This is concerning for possible mass, although it may represent a rounded area of pneumonia. Correlate clinically with symptoms. If there are symptoms of pneumonia, then this could be followed up in 2-4 weeks with a repeat PA and lateral chest x-ray. If the patient does not have symptoms suggesting pneumonia, then further evaluation with a CT is recommended. Dictated by... Reginald Miguel M.D. [facility] A Service of [facility] RADIOLOGY TEXT RESULTS PATIENT: LONA STOVALL LOCATION: [facility] : 36 UNIT #: [id number] AGE: [address]: Avinash Whitehead MD SEX: M ORDER DR: THIS IS AN ELECTRONICALLY VERIFIED REPORT Reginald Miguel M.D. at 02/11/2017 4:47 PM ARS/pcl TD: 02/11/2017 16:18 JOB #: [id number] MEDICAL IMAGING REPORT Page 1 of 1 COPY
--- NOTE | ~2017-02-11 | CT52 ---
[facility] A Service of [facility] & [facility] RADIOLOGY TEXT RESULTS PATIENT: LONA STOVALL LOCATION: [place] [address]- : 36 UNIT #: [id number] AGE: [address]: Evelia Pena MD SEX: M ORDER DR: [id number] [facility] [address] [facility]. [place], [place] [address] [id number] MR#: [id number] #: [id number] NAME: LONA STOVALL : 1935 SEX: M STUDY DATE/TIME: 02/11/2017 14:59 UNIT: [facility] ROOM: [facility] STUDY DESCRIPTION: CT Cervical Spine Wo Cont Attending Physician: Evelia Pena M.D. Ordering Physician: Avinash Whitehead M.D. MEDICAL IMAGING REPORT This report is preliminary unless electronic signature is present EXAM Cervical spine CT. HISTORY Patient fell yesterday morning and complains of neck pain. TECHNIQUE Axial imaging was obtained from the skull base to the upper thoracic spine and evaluated at bone and soft tissue windows with multiplanar reformats. This CT exam was performed with one or more of the following radiation dose reduction techniques: automatic exposure control, adjustment of mA and/or kV according to patient size, and iterative reconstruction. FINDINGS Alignment is satisfactory. There are mild degenerative changes at C2-3 and C3-4. At C4-5 and C5-6, there is moderate degenerative disc disease with both anterior and posterior osteophyte formation. There is more advanced degenerative disc disease at C6-7 with disc space narrowing and anterior and posterior osteophyte formation. In addition to the disc disease, there is moderate facet hypertrophy throughout the cervical spine. Central spinal stenosis is [id number] at C5-6 and C6-7. Foraminal stenosis is moderate on the left at C5-6 from uncovertebral joint osteophyte formation and mild bilaterally at C6-7. No fractures or destructive bone lesions are seen. Apical fibrosis is seen at the left lung apex. IMPRESSION Multilevel cervical degenerative disc and facet disease. No evidence of fracture. [facility] A Service of [facility] & [facility] RADIOLOGY TEXT RESULTS PATIENT: LONA STOVALL LOCATION: [place] [address] : 36 UNIT #: [id number] AGE: [address]: Evelia Pena MD SEX: M ORDER DR: Dictated by... Donny Sanchez M.D. THIS IS AN ELECTRONICALLY VERIFIED REPORT Donny Sanchez M.D. at 02/15/2017 7:14 AM EZEKIEL/daniella TD: 02/11/2017 16:25 JOB #: [id number] MEDICAL IMAGING REPORT Page 1 of 1 COPY
--- NOTE | ~2017-02-11 | EKG ---
PATIENT: LONA STOVALL UNIT #: [id number] Ventricular Rate: 77 BPM Atrial Rate: 72 BPM QRS Duration: 108 ms Q-T Interval: 394 ms QTC Calculation(Bezet): 445 ms Calculated R Morris: -8 degrees Calculated T Morris: 62 degrees Diagnosis Line: Atrial fibrillation Diagnosis Line: Abnormal ECG Diagnosis Line: No previous ECGs available Diagnosis Line: Confirmed by SHEILA BRADLEY MD ([id number]) on Diagnosis Line: 02/12/2017 6:48:32 AM INTERPRETING TOBY LESTER
[~2017-02-11 14:26] MED LIST: ACETAMINOPHEN PO; ADVAIR 2501 DISK W/D; AMARYL; AMARYL PO; AMIODARONE; AMIODARONE PO; APRESOLINE; APRESOLINE PO; ASPIRIN PO; AUGMENTIN1 TAB.SR1; COUMADIN; FLOMAX0.4 MG; ISORDIL PO; LASIX; LASIX PO; LIPITOR; LIPITOR PO; LOPRESSOR; LOPRESSOR PO; LORTAB 7.5-5001 TAB; PLAVIX PO; SPIRIVA18 MCG; VASOTEC
[2017-02-11 14:28] LABS: BASOPHIL% 0.3 % (0-2.5); EOSINOPHIL# 0.1 X10e3 (0-0.7); EOSINOPHIL% 0.7 % (0.0-7.0); HEMATOCRIT 26.7 % (38.0-50.0); HEMOGLOBIN 8.6 gm/dL (13.0-16.0); LYMPHOCYTE# 0.9 X10e3 (1.0-3.5); LYMPHOCYTE% 6.7 % (17.0-45.0); MEAN CELL VOLUME 85.7 FL (83-96); MEAN CORPUSCULAR HEMOGLOBIN 27.5 PG (28-34); MEAN CORPUSCULAR HGB CONC 32.1 g/dL (30-36); MEAN PLATELET VOLUME 7.2 FL (6.5-11.5); MONOCYTE# 0.9 X10e3 (0-1.0); MONOCYTE% 6.8 % (3.0-12.0); NEUTROPHIL# 10.9 X10e3 (1.5-7.1); NEUTROPHIL% 85.5 % (40-75); PLATELET COUNT 269 X10e3 (140-420); RED BLOOD COUNT 3.12 X10e (3.90-5.60); RED CELL DISTRIBUTION WIDTH 15.2 % (11.0-15.5); WHITE BLOOD COUNT 12.8 X10e3 (4.0-10.5)
[2017-02-11 14:33] LABS: DIFF IND NO
[2017-02-11 14:42] LABS: INR 2.7; PARTIAL THROMBOPLASTIN TIME 51.8 SECONDS (23.5-31.3); PROTHROMBIN TIME (PATIENT) 29.3 SECONDS (9.6-11.5)
[2017-02-11 14:50] LABS: ALBUMIN SERUM 3.1 g/dL (3.5-5.0); BILIRUBIN, DIRECT 0.3 mg/dL (0.0-0.2); BILIRUBIN,INDIRECT 0.5 mg/dL (0.0-0.9); BILIRUBIN,TOTAL 0.8 mg/dL (0.2-2.0); BUN/CREATININE RATIO 17.27; CALCIUM SERUM 11.2 mg/dL (8.4-10.2); CREATININE SERUM 2.2 mg/dL (0.6-1.4); GLOM FILT RATE Estimated 27.3 mL/min (>60); POTASSIUM 4.7 mmol/L (3.5-5.1); PROTEIN TOTAL SERUM 7.4 g/dL (6.0-8.3)
[2017-02-11 14:53] LABS: POC - CKMB 1.7 ng/mL (0.0-7.9); POC - TROPONIN <0.05 ng/mL (<=0.05)
[2017-02-11 14:54] LABS: URINE SOURCE CLEAN CATCH
[2017-02-11 15:09] LABS: URINE APPEARANCE CLEAR; URINE BILIRUBIN NEG (NEG); URINE BLOOD NEG (NEG); URINE COLOR YELLOW; URINE GLUCOSE NEG (NEG); URINE KETONE NEG (NEG); URINE LEUKOCYTE ESTERASE NEG (NEG); URINE NITRATE NEG (NEG); URINE PROTEIN NEG (NEG); URINE SPECIFIC GRAVITY 1.014 (1.003-1.035)
[2017-02-11 15:13] LABS: CULTURE INDICATED? NO
[2017-02-11 17:07] LABS: POC - CKMB 1.9 ng/mL (0.0-7.9); POC - TROPONIN <0.05 ng/mL (<=0.05)
[2017-02-11] MEDS ORDERED: ZOCOR PO (21:10)
[2017-02-11] MEDS ORDERED: CARVEDILOL3.125 MG PO (21:11)
[2017-02-11] MEDS ORDERED: LASIX20 MG PO (21:11)
[2017-02-11] MEDS ORDERED: FERROUS SULFATE PO (21:12)
[2017-02-11] MEDS ORDERED: AMARYL1 MG PO (21:12)
[2017-02-11] MEDS ORDERED: HYDRALAZINE HCL50 MG PO (21:13)
[2017-02-12 01:45] LABS: HEMOGLOBIN 7.9 gm/dL (13.0-16.0); MEAN CELL VOLUME 85.1 FL (83-96); MEAN CORPUSCULAR HEMOGLOBIN 27.9 PG (28-34); MEAN CORPUSCULAR HGB CONC 32.7 g/dL (30-36); MEAN PLATELET VOLUME 7.2 FL (6.5-11.5); RED BLOOD COUNT 2.82 X10e (3.90-5.60); RED CELL DISTRIBUTION WIDTH 15.1 % (11.0-15.5); WHITE BLOOD COUNT 10.9 X10e3 (4.0-10.5)
[2017-02-12 01:55] LABS: INR 2.9; PROTHROMBIN TIME (PATIENT) 31.5 SECONDS (9.6-11.5)
[2017-02-12 02:04] LABS: BUN/CREATININE RATIO 17.27; CALCIUM SERUM 10.8 mg/dL (8.4-10.2); CREATININE SERUM 2.2 mg/dL (0.6-1.4); GLOM FILT RATE Estimated 27.3 mL/min (>60); PHOSPHOROUS 3.9 mg/dL (2.5-4.6); POTASSIUM 4.3 mmol/L (3.5-5.1); URIC ACID 7.6 mg/dL (2.6-7.2)
[2017-02-12 18:30] LABS: SODIUM URINE RANDOM 77 mmol/L
[2017-02-12 18:46] LABS: OSMOLALITY,URINE 349 mOsmo/kg (250-900)
[2017-02-13 02:27] LABS: HEMATOCRIT 24.1 % (38.0-50.0); HEMOGLOBIN 7.8 gm/dL (13.0-16.0); MEAN CELL VOLUME 84.3 FL (83-96); MEAN CORPUSCULAR HEMOGLOBIN 27.3 PG (28-34); MEAN CORPUSCULAR HGB CONC 32.3 g/dL (30-36); MEAN PLATELET VOLUME 7.6 FL (6.5-11.5); RED BLOOD COUNT 2.85 X10e (3.90-5.60); RED CELL DISTRIBUTION WIDTH 15.2 % (11.0-15.5); WHITE BLOOD COUNT 12.8 X10e3 (4.0-10.5)
[2017-02-13 02:49] LABS: ALBUMIN SERUM 2.6 g/dL (3.5-5.0); BILIRUBIN,TOTAL 0.4 mg/dL (0.2-2.0); BUN/CREATININE RATIO 18.09; CALCIUM SERUM 10.3 mg/dL (8.4-10.2); CREATININE SERUM 2.1 mg/dL (0.6-1.4); GLOM FILT RATE Estimated 28.9 mL/min (>60)
[2017-02-14 03:32] LABS: HEMATOCRIT 25.2 % (38.0-50.0); HEMOGLOBIN 8.1 gm/dL (13.0-16.0); MEAN CELL VOLUME 85.5 FL (83-96); MEAN CORPUSCULAR HEMOGLOBIN 27.4 PG (28-34); MEAN CORPUSCULAR HGB CONC 32.1 g/dL (30-36); MEAN PLATELET VOLUME 7.3 FL (6.5-11.5); RED BLOOD COUNT 2.95 X10e (3.90-5.60); RED CELL DISTRIBUTION WIDTH 15.2 % (11.0-15.5); WHITE BLOOD COUNT 13.9 X10e3 (4.0-10.5)
[2017-02-14 03:57] LABS: ALBUMIN SERUM 2.6 g/dL (3.5-5.0); BILIRUBIN,TOTAL 0.4 mg/dL (0.2-2.0); CALCIUM SERUM 10.8 mg/dL (8.4-10.2); GLOM FILT RATE Estimated 30.6 mL/min (>60); POTASSIUM 4.2 mmol/L (3.5-5.1); PROTEIN TOTAL SERUM 6.1 g/dL (6.0-8.3)
[2017-02-15 03:35] LABS: BASOPHIL# 0.1 X10e3 (0-0.3); BASOPHIL% 0.5 % (0-2.5); EOSINOPHIL# 0.5 X10e3 (0-0.7); EOSINOPHIL% 4.6 % (0.0-7.0); HEMATOCRIT 23.4 % (38.0-50.0); HEMOGLOBIN 7.5 gm/dL (13.0-16.0); LYMPHOCYTE# 0.8 X10e3 (1.0-3.5); LYMPHOCYTE% 6.6 % (17.0-45.0); MEAN CELL VOLUME 85.5 FL (83-96); MEAN CORPUSCULAR HEMOGLOBIN 27.5 PG (28-34); MEAN CORPUSCULAR HGB CONC 32.2 g/dL (30-36); MEAN PLATELET VOLUME 7.1 FL (6.5-11.5); MONOCYTE# 0.9 X10e3 (0-1.0); MONOCYTE% 7.7 % (3.0-12.0); NEUTROPHIL# 9.2 X10e3 (1.5-7.1); NEUTROPHIL% 80.6 % (40-75); PLATELET COUNT 243 X10e3 (140-420); RED BLOOD COUNT 2.74 X10e (3.90-5.60); RED CELL DISTRIBUTION WIDTH 15.3 % (11.0-15.5); WHITE BLOOD COUNT 11.5 X10e3 (4.0-10.5)
[2017-02-15 03:36] LABS: DIFF IND YES
[2017-02-15 03:41] LABS: PARTIAL THROMBOPLASTIN TIME 53.7 SECONDS (23.5-31.3); PROTHROMBIN TIME (PATIENT) 21.5 SECONDS (9.6-11.5)
[2017-02-15 04:04] LABS: ALBUMIN SERUM 2.3 g/dL (3.5-5.0); BILIRUBIN,TOTAL 0.4 mg/dL (0.2-2.0); BUN/CREATININE RATIO 17.14; CALCIUM SERUM 10.8 mg/dL (8.4-10.2); CREATININE SERUM 2.1 mg/dL (0.6-1.4); GLOM FILT RATE Estimated 28.9 mL/min (>60); MAGNESIUM 2.1 mg/dL (1.6-3.0); POTASSIUM 4.5 mmol/L (3.5-5.1); PROTEIN TOTAL SERUM 5.5 g/dL (6.0-8.3)
[2017-02-15 04:18] LABS: PLATELET ESTIMATE NORMAL (NORMAL)
[2017-02-15 04:19] LABS: ACANTHOCYTES PRESENT; ANISOCYTOSIS SL; BURR CELLS PRESENT; OVALOCYTES PRESENT; POIKILOCYTOSIS SL
[2017-02-16 03:44] LABS: ALBUMIN SERUM 2.5 g/dL (3.5-5.0); BILIRUBIN,TOTAL 0.6 mg/dL (0.2-2.0); CALCIUM SERUM 10.9 mg/dL (8.4-10.2); GLOM FILT RATE Estimated 30.6 mL/min (>60); MAGNESIUM 2.1 mg/dL (1.6-3.0)
[2017-02-16 13:33] LABS: INR 1.7; PROTHROMBIN TIME (PATIENT) 18.7 SECONDS (9.6-11.5)
[2017-02-16 20:54] LABS: CALCIUM (PTHINTACT) 10.6 mg/dL (8.6-10.3)
[2017-02-17 03:57] LABS: HEMATOCRIT 24.3 % (38.0-50.0); MEAN CELL VOLUME 86.3 FL (83-96); MEAN CORPUSCULAR HEMOGLOBIN 28.4 PG (28-34); MEAN CORPUSCULAR HGB CONC 32.9 g/dL (30-36); MEAN PLATELET VOLUME 7.4 FL (6.5-11.5); PROTHROMBIN TIME (PATIENT) 21.2 SECONDS (9.6-11.5); RED BLOOD COUNT 2.81 X10e (3.90-5.60); RED CELL DISTRIBUTION WIDTH 15.9 % (11.0-15.5); WHITE BLOOD COUNT 13.6 X10e3 (4.0-10.5)
[2017-02-17 04:18] LABS: ALBUMIN SERUM 2.5 g/dL (3.5-5.0); BILIRUBIN,TOTAL 0.4 mg/dL (0.2-2.0); BUN/CREATININE RATIO 15.78; CALCIUM SERUM 10.1 mg/dL (8.4-10.2); CREATININE SERUM 1.9 mg/dL (0.6-1.4); GLOM FILT RATE Estimated 32.6 mL/min (>60); PHOSPHOROUS 3.1 mg/dL (2.5-4.6); POTASSIUM 4.1 mmol/L (3.5-5.1); PROTEIN TOTAL SERUM 5.7 g/dL (6.0-8.3)
[2017-02-18 03:47] LABS: BASOPHIL% 0.4 % (0-2.5); EOSINOPHIL# 0.1 X10e3 (0-0.7); EOSINOPHIL% 0.7 % (0.0-7.0); HEMOGLOBIN 8.4 gm/dL (13.0-16.0); LYMPHOCYTE# 0.8 X10e3 (1.0-3.5); LYMPHOCYTE% 6.2 % (17.0-45.0); MEAN CELL VOLUME 86.9 FL (83-96); MEAN CORPUSCULAR HGB CONC 32.2 g/dL (30-36); MEAN PLATELET VOLUME 7.6 FL (6.5-11.5); MONOCYTE# 0.9 X10e3 (0-1.0); MONOCYTE% 7.1 % (3.0-12.0); NEUTROPHIL# 10.4 X10e3 (1.5-7.1); NEUTROPHIL% 85.6 % (40-75); PLATELET COUNT 262 X10e3 (140-420); RED BLOOD COUNT 2.99 X10e (3.90-5.60); RED CELL DISTRIBUTION WIDTH 16.2 % (11.0-15.5); WHITE BLOOD COUNT 12.2 X10e3 (4.0-10.5)
[2017-02-18 03:48] LABS: DIFF IND NO
[2017-02-18 03:56] LABS: INR 3.4; PROTHROMBIN TIME (PATIENT) 37.1 SECONDS (9.6-11.5)
[2017-02-18 04:14] LABS: BUN/CREATININE RATIO 17.89; CALCIUM SERUM 10.3 mg/dL (8.4-10.2); CREATININE SERUM 1.9 mg/dL (0.6-1.4); GLOM FILT RATE Estimated 32.6 mL/min (>60); MAGNESIUM 2.3 mg/dL (1.6-3.0); POTASSIUM 4.3 mmol/L (3.5-5.1)
[2017-02-18] MEDS ORDERED: ACETAMINOPHEN325 MG PO (15:00)
[2017-02-18] MEDS ORDERED: HYDROCODON-ACE1 EAC7 PO (15:03)
[2017-02-18] MEDS ORDERED: COUMADIN3 MG PO (15:08)
== END 2017-02-18 19:01 | disposition home health service (06) | DRG 871 ==
LOC: CED 14:26 → CEDOF 17:10 → C4C 17:58
PROVIDERS: Emergency Medicine; Internal Medicine; Internal Medicine Nephrology
PROC: 0BBG3ZX Excision of Left Upper Lung Lobe, Percutaneous Approach, Diagnostic (ICD-10-PCS; 2017-02-15)
PROC: 30233N1 Transfusion of Nonautologous Red Blood Cells into Peripheral Vein, Percutaneous Approach (ICD-10-PCS; 2017-02-15)
PROC: B24BZZZ Ultrasonography of Heart with Aorta (ICD-10-PCS; principal; 2017-02-17)
DX: A41.9 Sepsis, unspecified organism (principal); J18.9 Pneumonia, unspecified organism; E46 Unspecified protein-calorie malnutrition; N18.4 Chronic kidney disease, stage 4 (severe); I13.0 Hypertensive heart and chronic kidney disease with heart failure and stage 1 through stage 4 chronic kidney disease, or unspecified chronic kidney disease; S32.020A Wedge compression fracture of second lumbar vertebra, initial encounter for closed fracture; I50.22 Chronic systolic (congestive) heart failure; C34.12 Malignant neoplasm of upper lobe, left bronchus or lung; E87.1 Hypo-osmolality and hyponatremia; E11.22 Type 2 diabetes mellitus with diabetic chronic kidney disease; I08.3 Combined rheumatic disorders of mitral, aortic and tricuspid valves; I48.0 Paroxysmal atrial fibrillation; I25.10 Atherosclerotic heart disease of native coronary artery without angina pectoris; E78.5 Hyperlipidemia, unspecified; R59.0 Localized enlarged lymph nodes; I45.5 Other specified heart block; R00.1 Bradycardia, unspecified; T44.7X5A Adverse effect of beta-adrenoreceptor antagonists, initial encounter; D50.8 Other iron deficiency anemias; E83.52 Hypercalcemia; E79.0 Hyperuricemia without signs of inflammatory arthritis and tophaceous disease; I71.4 Abdominal aortic aneurysm, without rupture; D63.1 Anemia in chronic kidney disease; W10.9XXA Fall (on) (from) unspecified stairs and steps, initial encounter; Y92.239 Unspecified place in hospital as the place of occurrence of the external cause; Z68.24 Body mass index [BMI] 24.0-24.9, adult; I25.2 Old myocardial infarction; Z95.5 Presence of coronary angioplasty implant and graft; Z87.891 Personal history of nicotine dependence; Z79.01 Long term (current) use of anticoagulants; Z79.899 Other long term (current) drug therapy
CPT/HCPCS: 36415; 70450; 71010; 71250; 72100; 72125; 74176; 77012; 80048; 80053; 80076; 81003; 82310; 82378; 82553; 82728; 82947; 83540; 83550; 83605; 83735; 83930; 83935; 83970; 84100; 84165; 84300; 84443; 84484; 84550; 85025; 85027; 85610; 85730; 86850; 86900; 86901; 86923; 87040; 88305; 88341; 88342; 93005; 93306; 97110; 97116; 97161; 97165; 97530; 97535; 99285; G8978-GP; G8979-GP; G8987-GO; G8988-GO; G8989-GO; J0456; J0630; J0696; J1815; J1940; J2250; J2270; J2916; J3010; J3489; P9016

== ENCOUNTER → 2017-02-24 | Outpatient (CLI) | payer MEDICARE ==
[~2017-02-24] MED LIST changes: +ACETAMINOPHEN325 MG PO; +AMARYL1 MG PO; +CARVEDILOL3.125 MG PO; +COUMADIN3 MG PO; +FERROUS SULFATE PO; +HYDRALAZINE HCL50 MG PO; +HYDROCODON-ACE1 EAC7 PO; +LASIX20 MG PO; +ZOCOR PO
== END | disposition home or self-care (01) ==
LOC: CMRI 17:46
DX: C34.12 Malignant neoplasm of upper lobe, left bronchus or lung (principal); R90.89 Other abnormal findings on diagnostic imaging of central nervous system; H74.8X3 Other specified disorders of middle ear and mastoid, bilateral
CPT/HCPCS: 70551

== ENCOUNTER 2017-04-30 14:36 | Inpatient (IN) | payer MEDICARE ==
--- NOTE | ~2017-04-30 | EKG ---
PATIENT: LONA STOVALL UNIT #: [id number] Ventricular Rate: 96 BPM Atrial Rate: 136 BPM QRS Duration: 112 ms Q-T Interval: 362 ms QTC Calculation(Bezet): 457 ms Calculated R Leming: -27 degrees Calculated T Leming: 92 degrees Diagnosis Line: Atrial fibrillation Diagnosis Line: Minimal voltage criteria for LVH, may be normal Diagnosis Line: variant Diagnosis Line: Non-specific intra-ventricular conduction delay Diagnosis Line: Abnormal ECG Diagnosis Line: Diagnosis Line: Confirmed by SHEILA BRADLEY MD ([id number]) on Diagnosis Line: 05/01/2017 10:05:13 AM INTERPRETING TOBY LESTER
--- NOTE | ~2017-04-30 | HP ---
Unit #: [id number] #: [id number] Patient: LONA STOVALL [id number] [address] [place], [place] [address] [id number] I MR#: [id number] NAME: LONA STOVALL ROOM: 301 Age: 82 Sex: M Admission Date: 04/30/2017 : 1935 Attending Physician: Ramon Lo M.D. Primary Care Physician: No Primary Care Physician HISTORY AND PHYSICAL CHIEF COMPLAINT Generalized weakness, decreased p.o. intake. DISCUSSION This is an 82-year-old gentleman who has a past medical history of chronic A-fib, non-small cell lung cancer, anemia of chronic disease, history of hypercalcemia, hypertension, CHF, ejection fraction 55%, dyslipidemia, diabetes as per old record, coronary artery disease, previous stent, history of abdominal aortic aneurysm status post repair. He lives at home with his . The patient was brought to the emergency room. EMS was called by family that patient has been having declining health, not eating for a few days, and generalized weak and brought to the emergency room. Family is not available at the bedside, even at home. We called, left message. Most of information obtained through the chart. The patient is a very poor historian, he is confused, mumbling, repeating the words, unable to provide me any history. PAST MEDICAL HISTORY 1. History of coronary artery disease with previous stent. 2. History of abdominal aortic aneurysm, status post repair. 3. History of chronic A-fib. 4. Non-small cell lung cancer with left upper lobe lung mass. 5. Anemia of chronic kidney disease. 6. Chronic kidney disease stage 3 to 4. 7. History of fall in the past with compression fracture of L2. 8. Hypercalcemia secondary to lung mass. 9. Hypertension. 10. History of CHF, ejection fraction 55% in the past. 11. Dyslipidemia. 12. Diabetes as per old record. 13. History of moderate protein malnutrition. 14. History of CVA and TIA. 15. Chronic left frontal infarct on CT scan. 16. History of elevated CEA. PAST SURGICAL HISTORY 1. History of cath and stent. 2. Cataract, both eyes. 3. Abdominal aortic aneurysm repair. MEDICATIONS Medications from home - I do not know the doses but as per list EMS provided are: 1. Zocor. Unit #: [id number] #: [id number] Patient: LONA STOVALL 2. Lasix. 3. Carvedilol. 4. Ferrous sulfate. 5. Hydralazine. 6. Acetaminophen. 7. Hydrocodone 5/325. 8. Coumadin, unknown dose. ALLERGIES No known drug allergies. SOCIAL HISTORY The patient has a history of smoking in the past, two packs of cigarettes per day. No smoking currently. No history of alcohol or illicit drug use. FAMILY HISTORY Unable to obtain from the patient. REVIEW OF SYSTEMS Unable to obtain from the patient. PHYSICAL EXAMINATION GENERAL: Elderly male lying in the bed comfortably, currently not in any distress. He is alert, awake, x0 at this time. CURRENT VITAL SIGNS: Temperature 97.5, heart rate 89, respiratory rate 22, blood pressure 139/91, oxygen 100% on room air. HEENT: Head is atraumatic, normocephalic. Pupils equal to light and accommodation. Extraocular muscles intact. Dry mucous membranes. NECK: Supple. No JVD, no thyromegaly. LUNGS: Clear to auscultation. No rhonchi, no wheezing. HEART: Irregularly irregular. ABDOMEN: Soft, nontender, nondistended. Bowel sounds positive. NEUROLOGICAL: He is alert, awake, oriented x1, moving all extremities. EXTREMITIES: No cyanosis, no clubbing, no edema. DIAGNOSTIC STUDIES LABORATORY: UA is negative. White count 13, hemoglobin 7, hematocrit 24.7, platelets 234. Chemistry - sodium 129, potassium 3.9, chloride 102, Glucose 109, BUN 27, creatinine 1.6. INR is 1.2. Troponin less than 0.5. Glucose 106. IMAGING: Chest x-ray shows left upper lung mass, no acute findings. CT head shows chronic left frontal lobe infarct, stable chronic diffuse changes. ASSESSMENT AND PLAN 1. Change in mental status, questionable etiology, questionable baseline. 2. Failure to thrive. 3. Anemia with history of anemia of chronic disease. 4. Non-small cell lung cancer. 5. Chronic Atrial fibrillation. 6. Subtherapeutic INR: Give one dose of Lovenox and resume Coumadin as per home dose. Monitor INR. 7. History of compression fracture of L2. 8. History of hypercalcemia in the past secondary to lung mass. Unit #: [id number] #: [id number] Patient: LONA STOVALL 9. Hypertension. 10. History of congestive heart failure, ejection fraction 55%: Currently stable. Looks a little dehydrated. Will give some IV fluid, 1 L, re-evaluate in the morning. Hold Lasix. 11. Dyslipidemia. 12. Diabetes as per old record: Blood sugar is stable. 13. Coronary artery disease with previous stent. 14. History of abdominal aortic aneurysm, status post repair. 15. History of elevated carcinoembryonic antigen. 16. History of cerebrovascular accident and transient ischemic attack: Chronic left frontal lobe infarct. Plan is to admit to hospital. Start on IV fluids. Ask enterprise resource planner to evaluate for possible placement. Dictated by Mellisa Chang TD: 05/01/2017 08:41 JOB #: [id number] HISTORY AND PHYSICAL Page 1 of 1 X X HISTORY AND PHYSICAL
--- NOTE | ~2017-04-30 | DS ---
Unit #: [id number] #: [id number] Patient: LONA STOVALL [address] [address] [id number] I MR#: [id number] NAME: LONA STOVALL ROOM: 301 Age: 82 Sex: M Admission Date: 04/30/2017 : 1935 Discharge Date: 05/05/2017 Attending Physician: Ramon Lo M.D. DISCHARGE SUMMARY HISTORY OF PRESENT ILLNESS AND HOSPITAL COURSE The patient is an 82-year-old man with a past medical history significant for chronic atrial fibrillation, on chronic anticoagulation with Coumadin, nonsmall cell lung cancer, anemia of chronic disease, and hypercalcemia. He presented to the hospital with altered mental status and confusion initially suspected due to hyponatremia with a sodium of 129 which improved to a sodium of 132. His confusion persisted. Patient was also noted to have an elevated calcium of 10.1. He has a prior history of hypercalcemia which was treated with bisphosphonate, and his calcium improved to 9. His confusion persisted. A CT scan of the head done on presentation demonstrated an old temporal infarct and no acute abnormality. The patient has a history significant for advanced nonsmall cell lung cancer. Oncology was consulted. It was felt that hospice would be appropriate for palliative care. The patient is being transferred to hospice at [facility] today. DISCHARGE DIAGNOSES 1. Advanced nonsmall cell lung cancer. 2. Paroxysmal atrial fibrillation. 3. Failure to thrive. 4. Hyponatremia. 5. Hypercalcemia. DISCHARGE MEDICATIONS 1. Tylenol 650 p.o. q.6 p.r.n. 2. Coumadin 3 mg p.o. daily. 3. Coreg 3.125 mg p.o. b.i.d. 4. Hydrocodone 5/325 mg 1-2 p.o. q.4 p.r.n. DISCHARGE INSTRUCTIONS Patient is to be discharged to hospice at [facility]. Dictated by... Earle Rizvi M.D. AM/am TD: 05/05/2017 15:06 JOB #: [id number] Unit #: [id number] #: [id number] Patient: LONA STOAVLL DISCHARGE SUMMARY Page 1 of 1 X X DISCHARGE SUMMARY
--- NOTE | ~2017-04-30 | CO ---
Unit #: [id number] #: [id number] Patient: LONA STOVALL [id number] [address] [place], [place] [address] [id number] I MR#: [id number] NAME: LONA STOVALL ROOM: 301 Age: 82 Sex: M Admission Date: 04/30/2017 : 1935 Attending Physician: Ramon Lo M.D. Primary Care Physician: Primary Care Physician No Consultation Date: 05/03/2017 CONSULTATION REPORT REASON FOR CONSULTATION Lung cancer, please evaluate. HISTORY OF PRESENT ILLNESS Mr. Lona Stovall is an 82-year-old with a history of stage III non-small cell lung cancer, diagnosed in January 2017 when he presented to the hospital and was found to have a large left lung mass. He subsequently had a PET-CT scan, which did not show any evidence of distant metastatic disease. Concurrent chemoradiation therapy was discussed with the patient and he declined. He accepted only radiation therapy as a palliation to his lung mass as he felt that he was too sick to undergo chemotherapy and had no desire as well. I am uncertain whether he has received his radiation therapy. He has since been admitted to the hospital on 04/30/2017 after no further follow up as an outpatient with generalized weakness and decreased p.o. intake with confusion. Historical information is obtained primarily from the chart as the patient is too confused and there are no family at bedside. From records, he has been eating poorly and has been very confused. PAST MEDICAL HISTORY Chronic atrial fibrillation, anemia, hypercalcemia, hypertension, CHF, dyslipidemia, diabetes, current non-small cell lung cancer mentioned, and hypertension. PAST SURGICAL HISTORY Abdominal aortic aneurysm repair, cardiac catheterization, stent, and angioplasty. SOCIAL HISTORY History of 2-pack a day of smoking. No history of alcohol usage. FAMILY HISTORY Unable to obtain. REVIEW OF SYSTEMS Unable to obtain. PHYSICAL EXAMINATION GENERAL: He is an elderly man, who looks of lost significant recent weight, who is confused and not oriented to time, place, or person. VITAL SIGNS: Temperature 97.4, pulse is 101, respirations 20, blood pressure 118/63, and O2 saturation 100% on room air. HEENT: Shows pupils are equal and reactive well to light. He is pale, but not icteric. Mucous membranes slightly dry. Unit #: [id number] #: [id number] Patient: LONA STOVALL NECK: Without adenopathy, JVD, or thyromegaly. CARDIOVASCULAR: First and second heart sounds are heard and regular. LUNGS: Chest expansion symmetric. Bilateral equal air entry with normal breath sounds. ABDOMEN: Soft and nontender. Bowel sounds are present. EXTREMITIES: Warm with 1+ edema. NEUROLOGIC: He is awake and alert, but confused without any focal findings with Moving all his 4 limbs. LABORATORY DATA Basic metabolic panel shows sodium 129, BUN is 27, and creatinine is 1.6. His calcium is 10.1. Albumin is 2 and corrected for his albumin. He is hypercalcemic. CBC shows a white count of 13.5, hemoglobin 7.9, platelet count is 234,000. BNP is 2426. TSH is 0.49. DIAGNOSTIC STUDIES A CT scan of the head done without contrast shows an old temporal infarct. ASSESSMENT/PLANS Mr. Lona Stovall is an 82-year-old with a history of advanced non-small cell lung cancer along with numerous medical problems including history of coronary artery disease, chronic atrial fibrillation, and type 2 diabetes mellitus. He has had progressive weight loss, weakness, and now confusion. Confusion is part from hyponatremia as well as from hypercalcemia, given his low albumin, his calcium level is indeed high. There are no family at bedside to discuss the prognosis, but given his progressive deterioration as well as his previously expressed wishes when he was better to receive only palliative care. I think hospice would be appropriate to be consulted at this point. Code current status can be discussed in further once family is available. Thank You for allowing us to participate in the care. Dictated by... Mellisa Cortes/larry TD: 05/05/2017 02:28 JOB #: [id number] CONSULTATION REPORT Page 1 of 1 X Flavio Kennedy MD CONSULTATION REPORT
--- NOTE | ~2017-04-30 | CO ---
Unit #: [id number] #: [id number] Patient: LONA STOVALL [id number] [address] [place], [place] [address] [id number] I MR#: [id number] NAME: LONA STOVALL ROOM: 301 Age: 82 Sex: M Admission Date: 04/30/2017 : 1935 Attending Physician: Ramon Lo M.D. Primary Care Physician: Primary Care Physician No CONSULTATION REPORT REASON FOR CONSULTATION Elevated BNP. HISTORY OF PRESENT ILLNESS This is an 82-year-old white male, who is known to Dr. Hilliard, has a history of coronary artery disease. He had an extensive anterior wall myocardial infarction in 2003, which a stent was placed to his LAD. His last known cardiac catheterization was in 2006, where the previously placed stent to the proximal LAD was widely patent. He had 90% stenosis of the mid LAD that was continued on medical management. At that time, he had an ejection fraction of 20% and AICD was advised; however, the patient never followed up. His last echocardiogram in 01/2017 showed improvement of his left ventricular systolic function where ejection fraction is 50% to 55%. He is also known to have permanent atrial fibrillation and was on anticoagulation with Coumadin. The patient was diagnosed with non-small cell lung cancer in 01/2017 and has apparently underwent radiation therapy. He was brought into the emergency room because he refused to eat and had a progressive weakness. There is no family available and the patient is confused and unable to provide a history. Information has been obtained from previous records and the chart. Unable to contact any family. According to the records, the patient has been confused in home. He was found to be hyponatremic with a sodium level of 129. He also was anemic with hemoglobin of 7.9. His BNP was elevated at 2426, but no heart failure is noted on this chest x-ray. There was a mild elevation of troponin is 0.07, but no acute ischemic changes on his EKG. PAST MEDICAL HISTORY 1. 2D echocardiogram on 02/17/2007 shows an ejection fraction of 50% to 55% with [id number] aortic regurgitation, moderate mitral regurgitation, cawr-si-mpryerom tricuspid regurgitation, and mild pulmonic valvular regurgitation. Right ventricular systolic pressure 50 mmHg consistent with moderate pulmonary hypertension. 2. Extensive anterior wall myocardial infarction in [id number] with stent placement to the LAD. 3. Non-ST elevation myocardial infarction in 07/2006. The patient refused cardiac workup at that time. 4. Cardiac catheterization on 03/08/2007 with intracoronary stent to the proximal LAD patent. There was a long segment of stenosis up to 90% in the mid LAD. Circumflex artery normal. Right coronary artery 20%. Ejection fraction of 20%. Medically managed. 5. Chronic systolic heart failure. 6. Hypertension. Unit #: [id number] #: [id number] Patient: LONA STOVALL 7. Hyperlipidemia. 8. Permanent atrial fibrillation, on anticoagulation with Coumadin. 9. Chronic kidney disease. 10. Diabetes mellitus type 2. 11. Abdominal aortic aneurysm repair in 2005. 12. History of EtOH use. 13. COPD. 14. Former smoker. PAST SURGICAL HISTORY 1. Abdominal aortic aneurysm repair. 2. Cataract extraction. SOCIAL HISTORY The patient lives with his . He smoked a pack and a half of cigarettes for 60 years, but quit more than 20 years ago. Also has a remote history of excessive alcohol use, but quit number of years ago. FAMILY HISTORY Noncontributory. ALLERGIES No known drug allergies. HOME MEDICATIONS Zocor 40 mg q.h.s., furosemide 20 mg daily, carvedilol 3.125 mg b.i.d., hydralazine 50 mg b.i.d., acetaminophen 650 mg q.6 hours p.r.n., Coumadin 3 mg daily, hydrocodone/acetaminophen 5/325 one to two q.4 hours p.r.n., Amaryl 1 mg daily. REVIEW OF SYSTEMS Unable to obtain, because of the patient's confusion. PHYSICAL EXAMINATION VITAL SIGNS: Blood pressure 108/59, heart rate 76, temperature 97.9, BMI 17. GENERAL: This is a thin frail 82-year-old white male, who is in no acute distress. NEUROLOGIC: He is awake and alert, but noted for weakness. NECK: Trachea is midline. No thyromegaly. No lymphadenopathy. No jugular venous distention. HEART: S1, S2 with soft systolic murmur heard best at the left sternal border. No rubs or clicks. Irregularly irregular rhythm. LUNGS: With coarse rhonchi in the left lung base. Upper lungs are clear. ABDOMEN: Soft and nontender with bowel sounds are active. EXTREMITIES: Without leg edema. SKIN: Pale and dry. DIAGNOSTIC STUDIES LABORATORY RESULTS: Glucose 50, BUN 29, creatinine 1.5, sodium 129, potassium 4.5. Troponin 0.07. BNP 2426. TSH 0.49. Protime 12.6, INR 1.2. White count 21.3, hemoglobin 8.7, hematocrit 27.6, platelet count 261. IMAGING STUDIES: Chest x-ray shows stable cardiomegaly with normal pulmonary vasculature. Lungs are clear. Noted for left upper lobe mass. CT of the head reveals no acute intracranial abnormality. Chronic left Unit #: [id number] #: [id number] Patient: LONA STOVALL temporal lobe infarct. CARDIOVASCULAR: EKG; atrial fibrillation with a controlled ventricular rate of 96 beats per minute with left ventricular hypertrophy. There is Q waves noted in the septal leads with questionable old septal infarct. IMPRESSION 1. Mental status changes, questionable metabolic encephalopathy versus dementia. 2. Severe anemia. 3. 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 4. Elevated BNP questionable secondary to lung cancer. 5. Chronic obstructive pulmonary disease. 6. Hyponatremia. 7. Hypoglycemia from malnutrition. 8. Old anterior wall myocardial infarction, status post percutaneous coronary intervention to the proximal left anterior descending artery. 9. Permanent atrial fibrillation. 10. Status post abdominal aortic aneurysm repair. 11. Left non-small cell lung cancer. PLAN 1. Cardiology was consulted for elevated troponin. The patient has no clinical evidence of fluid overload. Elevated BNP may be secondary to lung cancer. 2. Questionable hospice care. 3. We will stop Coumadin. 4. Continue beta-lexi for control of heart rate. 5. IV fluids to maintain electrolytes. 6. We will ask Dr. Aviles to see the patient for oncology opinion to see if any treatment is to be conducted. 7. Speak with family once they are available. 8. Because of hypotension, we will discontinue his diabetic medications. Thank you for allowing us to assist with this patient's care. Dictated by... Jose Galvez A.P.R.N. for Mellisa Mercer/larry TD: 05/02/2017 18:17 JOB #: [id number] CONSULTATION REPORT Page 1 of 1 X Jose Galvez APRN CONSULTATION REPORT
--- NOTE | ~2017-04-30 | CT71 ---
[facility] A Service [facility] RADIOLOGY TEXT RESULTS PATIENT: LONA STOVALL LOCATION: [facility] 301- : 36 UNIT #: [id number] AGE: [address]: Ramon Lo MD SEX: M ORDER DR: [id number] [place] [id number] [facility]. [place], [place] [address] [id number] I MR#: [id number] Acc #: [id number] NAME: LONA STOVALL : 1935 SEX: M STUDY DATE/TIME: 04/30/2017 16:23 UNIT: [address] ROOM: [facility] STUDY DESCRIPTION: CT Head Wo Contrast Attending Physician: Ramon Lo M.D. Ordering Physician: Neptali Arita M.D. Primary Care Physician: Primary Care Physician No MEDICAL IMAGING REPORT This report is preliminary unless electronic signature is present EXAM CT head, noncontrast, 04/30/2017 HISTORY 82-year-old male in the ED with new onset confusion, generalized weakness beginning earlier this morning. TECHNIQUE CT examination of the head was performed without IV contrast. This CT exam was performed with one or more of the following radiation dose reduction techniques: automatic control, adjustment of mA and/or kV according to patient size, and iterative reconstruction. FINDINGS No acute intracranial abnormality is identified. Old left temporal lobe infarct. Mild generalized cerebral atrophy. Mild diffuse low-attenuation white matter changes, nonspecific but likely related to chronic small vessel disease. These findings are stable since the previous study of 02/11/2017. No evidence of intracranial hemorrhage, mass, mass effect, cerebral edema or hydrocephalus. Fluid opacification of chronically hypoplastic mastoid airspaces is noted, and there may also be opacification of the middle ear spaces, as well as the external auditory canal on the right. IMPRESSION 1. No acute intracranial abnormality. 2. Chronic left temporal lobe infarct. 3. Stable diffuse chronic changes as noted above. 4. Fluid opacification of the mastoid airspaces and likely the bilateral middle ear spaces. [facility] A Service [facility] RADIOLOGY TEXT RESULTS PATIENT: LONA STOVALL LOCATION: [facility] 301-01 : 36 UNIT #: [id number] AGE: [address]: Ramon Lo MD SEX: M ORDER DR: Dictated by... Quinn Gaspar M.D. THIS IS AN ELECTRONICALLY VERIFIED REPORT Quinn Gaspar M.D. at 05/01/2017 12:52 PM BORISW/patrick TD: 05/01/2017 02:24 JOB #: [id number] MEDICAL IMAGING REPORT Page 1 of 1 COPY
--- NOTE | ~2017-04-30 | A ---
[facility] Nutrition Therapy DATE: 05/02/17 Patient: LONA STOVALL Physician: GIOVANI Address: [address] [place] [address] Room/Bed: [address] [place] [address], Zip: [place] [address] Admit Date: 04/30/17 Date of : 37 Height: 5 10 Weight: 126 57.2 NUTRITIONAL ASSESSMENT: REASON: Consult RE: Poor intake, Low BMI, and 1 point nutrition screen RE: Eating poorly 82 yo male admitted for failure to thrive, AMS, decreased PO intake PMH: CVA, TIA, Afib, non small cell lung cancer, DM, CAD, anemia, hyperlipidemia, HTN, CHF, dyslipidemia, abdominal aortic aneurysm, 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 82 yo male admitted for FTT, AMS and decreased PO intake for several days. Per RN and MD note, the pt is a poor historian. RD attempted pt interview, and the pt was asleep in the chair and would not wake up to speak with RD. RD observed the pt's tray, and it appears he only took a couple bites of each pureed item; however, he did consume 100% of two cartons of milk. VULCANIZING MACHINE OPERATOR evaluated the pt and recommended a pureed diet with thin liquids. RN report that the pt has been ordered pureed foods because his family has not brought in his dentures. RN notes that the pt has been taking water with no swallowing issues, and that he requires feeding assistance. Per RN report, the pt consumed a few bites of breakfast as he did at lunch. Per previous admission weights, it appears that the pt has been losing weight over the past couple of months. Hypoglycemia noted with a h/o DM. Care management is looking into placing the pt at the [facility] where his now resides. Dx: Inadequate protein-energy intake RT decreased appetite, advanced age AEB poor intake over the past several days and during admission, failure to thrive noted, weight loss of unknown amount. Intervention: [facility] Nutrition Therapy DATE: 05/02/17 Patient: LONA STOVALL Physician: GIOVANI Address: [address] [place] [address] Room/Bed: [address] [place] [address], Zip: [place] [address] Admit Date: 04/30/17 Date of : 37 Height: 5 10 Weight: 126 57.2 1. Diet per VULCANIZING MACHINE OPERATOR Monitoring, Evaluation and Goals: 1. Oral intake; tolerate >50-75% of meals and supplements 2. Improve labs; glucose, BUN, creat, GFR 3. Weight; prevent weight loss, promote gradual weight gain towards IBW Recommendations: 1. Continue to advance diet per VULCANIZING MACHINE OPERATOR recommendations. No further dietary restrictions recommended at this time due to poor intake and low body weight. 2. Consider adding an appetite stimulant to the pt's medication regimen to better facilitate nutritional intake. 3. Glucerna BID and Magic Cup BID for supplemental nutrition. 4. Appreciate staff and family encouraging and assisting with intake during meals. 5. If the pt's PO intake does not improve, consider discussing long-term enteral access with the pt's family as appropriate. RD will follow up to make appropriate recommendations. Pt is at moderate nutritional risk. RD will follow hospital course per protocol. Respectfully, JIGAR KIM RD, LD Food and Nutritional Services [facility] cc: client file
--- NOTE | ~2017-04-30 | CR72 ---
[facility] A Service of [facility] RADIOLOGY TEXT RESULTS PATIENT: LONA STOVALL LOCATION: [facility] [place] [facility] - : 37 UNIT #: [id number] AGE: [address]: Ramon Lo MD SEX: M ORDER DR: [id number] [facility] [address] [place], [place] [address] [id number] MR#: [id number] #: [id number] NAME: LONA STOVALL : 1935 SEX: M STUDY DATE/TIME: 04/30/2017 15:34 UNIT: [address] ROOM: [facility] STUDY DESCRIPTION: CR Chest Single View Portable Attending Physician: Ramon Lo M.D. Ordering Physician: Neptali Arita M.D. Primary Care Physician: No Primary Care Physician MEDICAL IMAGING REPORT This report is preliminary unless electronic signature is present EXAM Chest x-ray, 04/30/2017. HISTORY 82-year-old male in the ED complaining of 4-day history of cough, congestion and generalized weakness. History of lung cancer. TECHNIQUE AP portable upright chest x-ray. FINDINGS The exam shows no acute abnormality within the chest. Left upper lung mass compatible the patient's known lung cancer without appreciable radiographic change since the previous study. Both lungs otherwise clear. No pleural effusion. Stable mild cardiomegaly with normal pulmonary vascularity. IMPRESSION 1. Left upper lobe lung mass. 2. No change since 02/15/2017. Dictated by... Quinn Gaspar M.D. THIS IS AN ELECTRONICALLY VERIFIED REPORT Quinn Gaspar M.D. at 05/01/2017 12:51 PM HELEN/baljit TD: 05/01/2017 00:27 JOB #: [id number] MEDICAL IMAGING REPORT Page 1 of 1 COPY
[2017-04-30 17:32] LABS: POC - CKMB <1.0 ng/mL (0.0-7.9); POC - TROPONIN <0.05 ng/mL (<=0.05)
[2017-04-30 17:38] LABS: BASOPHIL% 0.1 % (0-2.5); EOSINOPHIL% 0.1 % (0.0-7.0); HEMATOCRIT 24.7 % (38.0-50.0); HEMOGLOBIN 7.9 gm/dL (13.0-16.0); LYMPHOCYTE# 0.3 X10e3 (1.0-3.5); LYMPHOCYTE% 2.5 % (17.0-45.0); MEAN CELL VOLUME 88.4 FL (83-96); MEAN CORPUSCULAR HEMOGLOBIN 28.3 PG (28-34); MONOCYTE# 0.7 X10e3 (0-1.0); MONOCYTE% 5.1 % (3.0-12.0); NEUTROPHIL# 12.4 X10e3 (1.5-7.1); NEUTROPHIL% 92.2 % (40-75); PLATELET COUNT 234 X10e3 (140-420); RED BLOOD COUNT 2.79 X10e (3.90-5.60); RED CELL DISTRIBUTION WIDTH 19.4 % (11.0-15.5); WHITE BLOOD COUNT 13.5 X10e3 (4.0-10.5)
[2017-04-30 17:42] LABS: DIFF IND YES
[2017-04-30 17:43] LABS: INR 1.2; PARTIAL THROMBOPLASTIN TIME 34.5 SECONDS (23.5-31.3)
[2017-04-30 17:48] LABS: BILIRUBIN, DIRECT 0.3 mg/dL (0.0-0.2); BILIRUBIN,INDIRECT 0.8 mg/dL (0.0-0.9); BILIRUBIN,TOTAL 1.1 mg/dL (0.2-2.0); BUN/CREATININE RATIO 16.87; CALCIUM SERUM 10.1 mg/dL (8.4-10.2); CREATININE SERUM 1.6 mg/dL (0.6-1.4); GLOM FILT RATE Estimated 39.8 mL/min (>60); POTASSIUM 3.8 mmol/L (3.5-5.1); PROTEIN TOTAL SERUM 5.6 g/dL (6.0-8.3)
[2017-04-30 18:17] LABS: PLATELET ESTIMATE NORMAL (NORMAL)
[2017-04-30 18:18] LABS: ANISOCYTOSIS SL
[2017-04-30 18:23] LABS: URINE SOURCE CLEAN CATCH
[2017-04-30 18:28] LABS: URINE APPEARANCE CLEAR; URINE BILIRUBIN NEG (NEG); URINE BLOOD NEG (NEG); URINE COLOR YELLOW; URINE GLUCOSE NEG (NEG); URINE KETONE 1+ (NEG); URINE LEUKOCYTE ESTERASE NEG (NEG); URINE NITRATE NEG (NEG); URINE PROTEIN 1+ (NEG); URINE SPECIFIC GRAVITY 1.017 (1.003-1.035)
[2017-04-30 18:31] LABS: URINE BACTERIA AUWI NEG (NEGATIVE); URINE SQUAMOUS EPITHELIAL CELL NONE SEEN /[HPF]; UWBCS1 AUWI 0-2 (0-5)
[2017-04-30 18:57] LABS: CULTURE INDICATED? NO
[2017-05-01] MEDS ORDERED: HYDROCODON-ACE1 EAC7 PO (02:39)
[2017-05-01] MEDS ORDERED: AMARYL1 MG PO (02:40)
[2017-05-01 05:59] LABS: INR 1.2; PARTIAL THROMBOPLASTIN TIME 29.9 SECONDS (23.5-31.3); PROTHROMBIN TIME (PATIENT) 12.7 SECONDS (10.0-11.7)
[2017-05-01 06:23] LABS: BASOPHIL% 0.1 % (0-2.5); HEMATOCRIT 28.1 % (38.0-50.0); HEMOGLOBIN 8.8 gm/dL (13.0-16.0); LYMPHOCYTE# 0.3 X10e3 (1.0-3.5); MEAN CELL VOLUME 89.8 FL (83-96); MEAN CORPUSCULAR HEMOGLOBIN 28.1 PG (28-34); MEAN CORPUSCULAR HGB CONC 31.3 g/dL (30-36); MEAN PLATELET VOLUME 7.6 FL (6.5-11.5); MONOCYTE# 2.5 X10e3 (0-1.0); MONOCYTE% 14.7 % (3.0-12.0); NEUTROPHIL# 14.2 X10e3 (1.5-7.1); NEUTROPHIL% 83.2 % (40-75); PLATELET COUNT 252 X10e3 (140-420); RED BLOOD COUNT 3.13 X10e (3.90-5.60); RED CELL DISTRIBUTION WIDTH 19.2 % (11.0-15.5); WHITE BLOOD COUNT 17.1 X10e3 (4.0-10.5)
[2017-05-01 06:25] LABS: CALCIUM SERUM 10.9 mg/dL (8.4-10.2); CREATININE SERUM 1.5 mg/dL (0.6-1.4); DIFF IND YES; GLOM FILT RATE Estimated 43.1 mL/min (>60)
[2017-05-01 06:44] LABS: PLATELET ESTIMATE NORMAL (NORMAL)
[2017-05-01 06:45] LABS: ACANTHOCYTES PRESENT; BURR CELLS PRESENT
[2017-05-01 06:46] LABS: ELLIPTOCYTES PRESENT; POIKILOCYTOSIS MOD
[2017-05-01 06:47] LABS: HYPOCHROMIA SL; TOXIC GRANULATION MOD
[2017-05-01 06:48] LABS: ANISOCYTOSIS SL
[2017-05-02 06:03] LABS: INR 1.2; PARTIAL THROMBOPLASTIN TIME 25.2 SECONDS (23.5-31.3); PROTHROMBIN TIME (PATIENT) 12.6 SECONDS (10.0-11.7)
[2017-05-02 06:16] LABS: ALBUMIN SERUM 2.1 g/dL (3.5-5.0); BILIRUBIN,TOTAL 0.8 mg/dL (0.2-2.0); BUN/CREATININE RATIO 19.33; CALCIUM SERUM 10.2 mg/dL (8.4-10.2); CREATININE SERUM 1.5 mg/dL (0.6-1.4); GLOM FILT RATE Estimated 43.1 mL/min (>60); POTASSIUM 4.5 mmol/L (3.5-5.1); PROTEIN TOTAL SERUM 5.4 g/dL (6.0-8.3)
[2017-05-02 09:56] LABS: HEMATOCRIT 27.6 % (38.0-50.0); HEMOGLOBIN 8.7 gm/dL (13.0-16.0); MEAN CELL VOLUME 88.4 FL (83-96); MEAN CORPUSCULAR HEMOGLOBIN 27.9 PG (28-34); MEAN CORPUSCULAR HGB CONC 31.6 g/dL (30-36); MEAN PLATELET VOLUME 7.4 FL (6.5-11.5); RED BLOOD COUNT 3.12 X10e (3.90-5.60); RED CELL DISTRIBUTION WIDTH 19.6 % (11.0-15.5); WHITE BLOOD COUNT 21.3 X10e3 (4.0-10.5)
[2017-05-02 18:49] LABS: BUN/CREATININE RATIO 19.33; CALCIUM SERUM 10.2 mg/dL (8.4-10.2); CREATININE SERUM 1.5 mg/dL (0.6-1.4); GLOM FILT RATE Estimated 43.1 mL/min (>60); POTASSIUM 4.4 mmol/L (3.5-5.1)
[2017-05-04 17:43] LABS: PROTHROMBIN TIME (PATIENT) 21.8 SECONDS (10.0-11.7)
[2017-05-05 10:24] LABS: BUN/CREATININE RATIO 18.66; CREATININE SERUM 1.5 mg/dL (0.6-1.4); GLOM FILT RATE Estimated 43.1 mL/min (>60)
== END 2017-05-05 19:29 | DRG 71 ==
LOC: CED 14:36 → CEDOF 20:00 → C3A PCU 20:00
PROVIDERS: Emergency Medicine; Internal Medicine; Internal Medicine Hematology & Oncology
DX: G93.41 Metabolic encephalopathy (principal); C34.90 Malignant neoplasm of unspecified part of unspecified bronchus or lung; R64 Cachexia; N18.4 Chronic kidney disease, stage 4 (severe); E44.0 Moderate protein-calorie malnutrition; I08.3 Combined rheumatic disorders of mitral, aortic and tricuspid valves; I48.2 Chronic atrial fibrillation; I13.0 Hypertensive heart and chronic kidney disease with heart failure and stage 1 through stage 4 chronic kidney disease, or unspecified chronic kidney disease; I50.22 Chronic systolic (congestive) heart failure; J44.9 Chronic obstructive pulmonary disease, unspecified; E87.1 Hypo-osmolality and hyponatremia; Z68.1 Body mass index [BMI] 19.9 or less, adult; E11.22 Type 2 diabetes mellitus with diabetic chronic kidney disease; E11.649 Type 2 diabetes mellitus with hypoglycemia without coma; D64.89 Other specified anemias; R62.7 Adult failure to thrive; R41.82 Altered mental status, unspecified; Z79.01 Long term (current) use of anticoagulants; E78.5 Hyperlipidemia, unspecified; E11.9 Type 2 diabetes mellitus without complications; I25.10 Atherosclerotic heart disease of native coronary artery without angina pectoris; Z95.5 Presence of coronary angioplasty implant and graft; Z86.73 Personal history of transient ischemic attack (TIA), and cerebral infarction without residual deficits; I25.2 Old myocardial infarction; Z87.891 Personal history of nicotine dependence; Z98.49 Cataract extraction status, unspecified eye; Z79.84 Long term (current) use of oral hypoglycemic drugs
CPT/HCPCS: 36415; 70450; 71010; 80048; 80053; 80076; 81003; 82553; 82947; 83605; 83880; 83930; 83935; 84443; 84484; 85025; 85027; 85610; 85730; 92526; 92610; 93005; 94760; 96360; 97110; 97116; 97162; 97167; 97530; 97535; 99285; G8978-GP; G8979-GP; G8987-GO; G8988-GO; G8996-GN; G8997-GN; G8998-GN; J1650; J1815; J3489